=== PATIENT | female | born 1935 | race Caucasian/White ===

== ENCOUNTER → 2016-08-09 | Outpatient (CLI) | payer BC ==
[~2016-08-09] MED LIST: ACET1TAB84 PO; ALEN70TA3 PO; AMLO-110 PO; ASCA500 PO; ASPI81TA28 PO; CHOL400T PO; IRBE1TAB50 PO; PRED10TA PO; ULT50X PO
[2016-08-09 12:22] LABS: BASO % 0.4 %; BASO ABS # 0.03 K/uL (0-0.2); COMPLETE YES; EOS % 1.3 %; HEMATOCRIT 39.1 % (37-47); IG% 0.1 %; LYMPH % 28.4 %; LYMPH ABS # 1.92 K/uL (1.2-3.4); MEAN CELL VOLUME 90.9 fL (80-100); MEAN CORPUSCULAR HEMOGLOBIN 30.7 pg (25-34); MEAN CORPUSCULAR HGB CONC 33.8 g/dl (32-36); MEAN PLATELET VOLUME 10.9 fL (7.4-10.4); MONO % 8.9 %; NEUT % 60.9 %; PLATELET COUNT 239 K/uL (130-400); WHITE BLOOD COUNT 6.77 K/uL (4.8-10.8)
[2016-08-09 12:48] LABS: BLOOD UREA NITROGEN 18 mg/dl (7-18); BUN/CREATININE RATIO 16.2 (10-20); CARBON DIOXIDE 26 mmol/L (21-32); CHLORIDE 106 mmol/L (98-107); GLUCOSE 107 mg/dl (70-99); POTASSIUM 4.1 mmol/L (3.5-5.1); SODIUM 140 mmol/L (136-145)
[2016-08-09 13:24] LABS: ESTIMATED AVERAGE GLUCOSE 114 mg/dl; HA1C FLAG Normal (Normal)
== END | disposition home or self-care (01) ==
LOC: C.LABBFT 09:08
PROVIDERS: ATTEND Internal Medicine
DX: R73.01 Impaired fasting glucose (principal); E55.9 Vitamin D deficiency, unspecified; K62.5 Hemorrhage of anus and rectum; M35.3 Polymyalgia rheumatica

== ENCOUNTER → 2016-09-24 | Day surgery (SDC) | payer BC ==
[2016-09-18 10:04] VITALS: Ht 157.5 cm; Wt 50.0 kg
[~2016-09-24] VITALS: Ht 157.5 cm; Wt 50.0 kg
[~2016-09-24] MED LIST changes: +LIDOCAINE HCL 2% 2 ML VIAL (20MG/ML) ONE; -PRED10TA PO; +PROPOFOL IV EMULSION 10 MG/ML 20 ML VIAL IV ONE; -ULT50X PO
--- NOTE | 2016-09-24 13:20 | Endo History and Physical ---
History & Physical Date of Service: Sep 24, 2016. Chief Complaint: RECTAL BLEEDING Referring Physician: DR. PARK History of Present Illness 81 yo CF who presents for colonoscopy secondary to rectal bleeding. Past Surgical History Hx Cardiac Surgery: No Hx Internal Defibrillator: No Hx Pacemaker: No Hx Abdominal Surgery: Yes (BANDAR BSO) Hx of Implantable Prosthesis: No Hx Post-Op Nausea and Vomiting: No Hx Cancer Surgery: No Hx Thoracic Surgery: No Hx Orthopedic: Yes (RT CTR) Hx Urinary Tract Surgery: No Family History Colon CA Social History Smoking Status: Never Smoker Hx Substance Use: No Hx Alcohol Use: No Allergies Coded Allergies: No Known Allergies (Verified , 09/24/16) Current Medications Reported Home Medications Medications Dose Route/Sig Max Daily Dose Days Date Category Dose Instructions Vitamin D (Cholecalciferol) 400 Unit Tab 1 Tab PO QAM 09/18/16 Reported Vitamin C (Ascorbic Acid) 500 Mg Tab 1 Tab PO QAM 09/18/16 Reported Norvasc (Amlodipine Besylate) 5 Mg Tab 5 Mg PO QAM 09/18/16 Reported Irbesartan 300 Mg Tab 1 Tab PO QAM 09/18/16 Reported Fosamax+D 70MG/5600 Iu (Alendronate Sodium/Vitamin D3) 70 Mg Tab 1 Tablet PO WK 09/18/16 Reported SATURDAY Tylenol Arthritis Ext Rel (Acetaminophen) 650 Mg Cplt 650 Mg PO BID 09/28/15 Reported Aspirin Ec (Aspirin) 81 Mg Tab 81 Mg PO QAM 09/28/15 Reported Vital Signs Weight (Kilograms): 50 Height (Feet): 5 Height (Inches): 2 Date Time Temp Pulse Resp B/P (MAP) Pulse Ox O2 Delivery O2 Flow Rate FiO2 09/24/16 12:48 36.9 79 18 152/72 (98) 96 Room Air Physical Exam General Appearance: WD/WN, no apparent distress Respiratory/Chest: Auscultation: breath sounds normal Cardiovascular: Heart Auscultation: RRR Abdomen: Bowel Sounds: normal Inspection & Palpation: soft, non-distended, no tenderness, guarding & rebound Assessment and Plan Assessment: 81 yo CF who presents for colonoscopy secondary to rectal bleeding. Plan: Proceed with colonoscopy.
--- NOTE | 2016-09-24 13:44 | GI REPORT ---
Procedure Date: 09/24/2016 1:09 PM Procedure: Colonoscopy Indications: Rectal bleeding Medicines: Sedation Required Anesthesia Staff Assistance, Monitored Anesthesia Care Complications: No immediate complications. Estimated Blood Loss: Estimated blood loss: none. Procedure: Pre-Anesthesia Assessment: - Prior to the procedure, a History and Physical was performed, and patient medications and allergies were reviewed. The patient's tolerance of previous anesthesia was also reviewed. The risks and benefits of the procedure and the sedation options and risks were discussed with the patient. All questions were answered, and informed consent was obtained. Prior Anticoagulants: The patient has taken aspirin, last dose was 1 day prior to procedure. ASA Grade Assessment: III - A patient with severe systemic disease. After reviewing the risks and benefits, the patient was deemed in satisfactory condition to undergo the procedure. After I obtained informed consent, the scope was passed under direct vision. Throughout the procedure, the patient's blood pressure, pulse, and oxygen saturations were monitored continuously. The scope was introduced through the anus and advanced to the terminal ileum. The colonoscopy was performed without difficulty. The patient tolerated the procedure well. The quality of the bowel preparation was good. The terminal ileum, ileocecal valve, appendiceal orifice, and rectum were photographed. Findings: Multiple small-mouthed diverticula were found in the sigmoid colon. Non-bleeding internal hemorrhoids were found during retroflexion. The hemorrhoids were small. Impression: - Diverticulosis in the sigmoid colon. - Non-bleeding internal hemorrhoids. - No specimens collected. Recommendation: - Resume previous diet. - Continue present medications. - No repeat colonoscopy due to age and the absence of advanced adenomas. - Return to primary care physician as previously scheduled. Nico Lopez, 09/24/2016 1:43:46 PM This report has been signed electronically. Note Initiated On: 09/24/2016 1:09 PM I attest to the content of the Intraoperative Record and orders documented therein, exceptions below
--- NOTE | 2016-09-24 13:44 | Discharge Instructions ---
Endoscopy Patient Instructions Date / Procedure(s) Performed Sep 24, 2016. Colonoscopy Allergy Information Coded Allergies: No Known Allergies (Verified , 09/24/16) Discharge Date / Findings Sep 24, 2016. Diverticulosis Internal hemorrhoids Medication Instructions Stopped Medication(s): ASPIRIN LAST DOSE 09/23/16 OK to resume all medications today as prescribed Reported Home Medications Medications Dose Route/Sig Max Daily Dose Days Date Category Dose Instructions Vitamin D (Cholecalciferol) 400 Unit Tab 1 Tab PO QAM 09/18/16 Reported Vitamin C (Ascorbic Acid) 500 Mg Tab 1 Tab PO QAM 09/18/16 Reported Norvasc (Amlodipine Besylate) 5 Mg Tab 5 Mg PO QAM 09/18/16 Reported Irbesartan 300 Mg Tab 1 Tab PO QAM 09/18/16 Reported Fosamax+D 70MG/5600 Iu (Alendronate Sodium/Vitamin D3) 70 Mg Tab 1 Tablet PO WK 09/18/16 Reported SATURDAY Tylenol Arthritis Ext Rel (Acetaminophen) 650 Mg Cplt 650 Mg PO BID 09/28/15 Reported Aspirin Ec (Aspirin) 81 Mg Tab 81 Mg PO QAM 09/28/15 Reported Provider Instructions Activity Restrictions - No exercising or heavy lifting for 24 hours. - Do not drink alcohol the day of the procedure. - Do not drive a car or operate machinery until the day after the procedure. - Do not make any important decisions or sign important papers in 24 hours after the procedure. Following Day: - Return to full activity which may include returning to work/school. Diet Start your diet with liquids and light foods (jello, soup, juice, toast). Then eat your usual diet if not nauseated. Treatment For Common After Affects For mild abdominal pain, bloating, or excessive gas: - Rest - Eat lightly - Lie on right side Follow-Up Information Follow-up with DR. PARK as scheduled Anesthesia Information What You Should Know You have had a procedure that required some medicine to reduce anxiety and discomfort. This treatment is called moderate sedation. After receiving the treatment, you may be sleepy, but you will be able to breathe on your own. The effects of the treatment may last for several hours. Follow these instructions along with Activity/Diet recommendations noted above: * Do NOT do anything where dizziness or clumsiness would be dangerous. * Rest quietly at home today, then you can be up and about tomorrow. * Have a responsible person stay with you the rest of today. * You may have had an I.V. today. If so, you may take the dressing off later today. Recommendations Call your doctor if: * Trouble breathing * Continuous vomiting for more than 24 hours * Temperature above 101 degrees * Severe abdominal pain or bloating * Pain not relieved by pain medicine ordered * There is increased drainage or redness from any incision * A large amount of rectal bleeding greater than 2-3 tablespoons. (If you had a polyp/s removed or have hemorrhoids, a small amount of blood - from the rectum is to be expected.) * You have any unanswered questions or concerns. IN THE EVENT OF A SERIOUS EMERGENCY, GO TO THE NEAREST EMERGENCY ROOM Your discharge instructions were prepared by provider Nico Lopez. Patient Instructions Signature Page Mitzi Elmore Patient (or Guardian) Signature/Date: I have read and understand the instructions given to me by my caregivers. Caregiver/RN/Doctor Signature/Date: The above-named patient and/or guardian has received patient instructions on this date. + Original Patient Signature Page (only) stays with chart. Please make copy for patient.
--- NOTE | 2016-09-24 14:00 | Anesthesiology Progress Note ---
Anesthesia Post Op Note Date & Time Sep 24, 2016 at 14:00 Vital Signs Pain Intensity: 0 Vital Signs Past 12 Hours Date Time Temp Pulse Resp B/P (MAP) Pulse Ox O2 Delivery O2 Flow Rate FiO2 09/24/16 13:58 73 20 134/89 (104) 99 Room Air 09/24/16 13:46 78 20 118/53 (74) 98 Room Air 09/24/16 12:48 36.9 79 18 152/72 (98) 96 Room Air Notes Mental Status: alert / awake / arousable, participated in evaluation Pt Amnestic to Procedure: Yes Nausea / Vomiting: adequately controlled Pain: adequately controlled Airway Patency, RR, SpO2: stable & adequate BP & HR: stable & adequate Hydration State: stable & adequate Anesthetic Complications: no major complications apparent
[2016-09-24 14:08] VITALS: BP 133/84; PULSE 69; O2SAT 99
== END | disposition home or self-care (01) ==
LOC: C.GI 12:24
PROVIDERS: ATTEND Internal Medicine
DX: K62.5 Hemorrhage of anus and rectum (principal); K57.30 Diverticulosis of large intestine without perforation or abscess without bleeding; K64.8 Other hemorrhoids; Z90.710 Acquired absence of both cervix and uterus; Z79.82 Long term (current) use of aspirin; Z98.41 Cataract extraction status, right eye; Z98.42 Cataract extraction status, left eye; I10 Essential (primary) hypertension; E78.5 Hyperlipidemia, unspecified; M19.90 Unspecified osteoarthritis, unspecified site; M35.3 Polymyalgia rheumatica; M81.0 Age-related osteoporosis without current pathological fracture; Z92.241 Personal history of systemic steroid therapy

== ENCOUNTER → 2016-12-18 | Outpatient (CLI) | payer BC ==
[~2016-12-18] MED LIST changes: -LIDOCAINE HCL 2% 2 ML VIAL (20MG/ML) ONE; -PROPOFOL IV EMULSION 10 MG/ML 20 ML VIAL IV ONE
== END | disposition home or self-care (01) ==
LOC: C.PAPS 10:10
PROVIDERS: ATTEND Nurse Practitioner
DX: N89.8 Other specified noninflammatory disorders of vagina (principal)

== ENCOUNTER → 2016-12-18 | Outpatient (CLI) | payer BC ==
[2016-12-18 17:50] LABS: BASO % 0.5 %; BASO ABS # 0.04 K/uL (0-0.2); COMPLETE YES; EOS % 0.8 %; HEMATOCRIT 39.4 % (37-47); LYMPH % 25.8 %; MEAN CORPUSCULAR HEMOGLOBIN 30.5 pg (25-34); MEAN CORPUSCULAR HGB CONC 33.5 g/dl (32-36); MEAN PLATELET VOLUME 10.6 fL (7.4-10.4); MONO % 8.5 %; NEUT % 64.4 %; PLATELET COUNT 247 K/uL (130-400); RED BLOOD COUNT 4.33 M/uL (4.2-5.4); WHITE BLOOD COUNT 7.75 K/uL (4.8-10.8)
[2016-12-18 18:13] LABS: ALT/SGPT 18 U/L (12-78); AST/SGOT 13 U/L (15-37); BLOOD UREA NITROGEN 19 mg/dl (7-18); BUN/CREATININE RATIO 18.1 (10-20); CALCIUM 9.3 mg/dl (8.5-10.1); CARBON DIOXIDE 27 mmol/L (21-32); CHLORIDE 106 mmol/L (98-107); CREATININE 1.03 mg/dl (0.60-1.20); GLUCOSE 100 mg/dl (70-99); POTASSIUM 4.6 mmol/L (3.5-5.1); SODIUM 140 mmol/L (136-145)
[2016-12-18 18:16] LABS: ALB/GLOB RATIO 1.2 (0.9-2); ALKALINE PHOSPHATASE 54 U/L (45-117)
== END | disposition home or self-care (01) ==
LOC: C.LABBFT 11:16
PROVIDERS: ATTEND Nurse Practitioner
DX: N89.8 Other specified noninflammatory disorders of vagina (principal); R10.84 Generalized abdominal pain

== ENCOUNTER → 2016-12-24 | Outpatient (CLI) | payer BC ==
[~2016-12-24] MED LIST changes: +OPTIRAY 320 IV PRN
--- NOTE | 2016-12-24 13:22 | DIAGNOSTIC IMAGING REPORT ---
CT SCAN OF THE ABDOMEN AND PELVIS WITH IV CONTRAST CLINICAL HISTORY: Generalized abdominal pain. COMPARISON STUDY: Abdominal CT dated 12/08/2010. TECHNIQUE: Following the IV administration of 93 cc of Optiray 320, CT scan of the abdomen and pelvis is performed from the lung bases to the proximal femora. Images are reviewed in the axial, sagittal, and coronal planes. IV contrast was administered without complication. A dose lowering technique was utilized adhering to the principles of ALARA. CT DOSE: 376.16 mGycm FINDINGS: Lung bases: The heart is normal in size and without pericardial effusion. There are bilateral fat-containing Bochdalek hernias. The lung bases are otherwise clear. Liver: The contrast-enhanced liver is normal in size, contour, and attenuation. There is no intrahepatic biliary ductal dilatation. The hepatic veins and portal veins are patent. Calcific granulomas are noted in the left hepatic lobe. 8 mm cyst is seen in the left lobe. Gallbladder: Unremarkable. Spleen: Normal in size and attenuation. Pancreas: Unremarkable. Adrenal glands: Unremarkable. Kidneys: The contrast enhanced kidneys images are cortical atrophy. There is no hydronephrosis. The kidneys enhance symmetrically. 5.6 cm cyst is again noted on the right. Additional subcentimeter cortical hypodensities also likely represent cysts but are too small for definitive characterization. 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 Abdominal vasculature: The abdominal aorta is normal in course and caliber moderate lumbosacral spondylosis is observed. Noting advanced atherosclerotic calcification. Bowel: There are severe constipation. No bowel obstruction is seen. The appendix is not identified. Peritoneum: There is no intraperitoneal free air or abdominal ascites. Lymphadenopathy: None. Pelvic viscera: The bladder is normal as visualized. The uterus is surgically absent. No adnexal lesion is seen. A 7 mm enhancing nodule is seen within the right gluteal musculature on image #302. This was likely present in 2010 and is of low suspicion. Skeletal structures: The skeletal structures are heterogeneously osteopenic. No lytic or blastic lesions are seen. Advanced arthritic changes present in the hips, right greater than left. Bursal fluid is present around the right hip. IMPRESSION: 1. There are no acute infectious or inflammatory findings in the abdomen or pelvis. 2. Severe constipation. No bowel obstruction is seen. 3. There is a 7 mm nodule focus of enhancement within the right gluteal musculature is of indeterminant etiology, possible representing a small nerve sheath tumor or intramuscular hemangioma. This has likely been present dating back to 2010 and is of doubtful significance. If further assessment is desired ultrasound could be considered. 4. Additional findings as above. Electronically signed by: Jose Ramon Baer M.D. 12/24/2016 1:20 PM Dictated Date/Time: 12/24/2016 1:11 PM
== END | disposition home or self-care (01) ==
LOC: C.CTS 10:51
PROVIDERS: ATTEND Nurse Practitioner
DX: R10.84 Generalized abdominal pain (principal); K59.00 Constipation, unspecified; R93.5 Abnormal findings on diagnostic imaging of other abdominal regions, including retroperitoneum

== ENCOUNTER → 2017-04-24 | Outpatient (CLI) | payer BC ==
[~2017-04-24] MED LIST changes: -OPTIRAY 320 IV PRN
[2017-04-25 06:59] LABS: HEMOGLOBIN A1C 5.5 % (4.5-5.6)
== END | disposition home or self-care (01) ==
LOC: C.LABBFT 13:26
PROVIDERS: ATTEND Internal Medicine
DX: R73.01 Impaired fasting glucose (principal); E55.9 Vitamin D deficiency, unspecified

== ENCOUNTER → 2017-09-18 | Outpatient (CLI) | payer BC, OTHER ==
[~2017-09-18] MED LIST changes: -AMLO-110 PO; +AMLO5TAB3 PO
[2017-09-18 17:38] LABS: BASO % 0.3 %; BASO ABS # 0.03 K/uL (0-0.2); EOS % 0.5 %; EOS ABS # 0.05 K/uL (0-0.5); HEMATOCRIT 37.4 % (37-47); HEMOGLOBIN 12.4 g/dL (12.0-16.0); IG# 0.04 K/uL (0.00-0.02); LYMPH ABS # 1.76 K/uL (1.2-3.4); MEAN CELL VOLUME 91.4 fL (80-100); MEAN CORPUSCULAR HEMOGLOBIN 30.3 pg (25-34); MEAN CORPUSCULAR HGB CONC 33.2 g/dl (32-36); MEAN PLATELET VOLUME 11.5 fL (7.4-10.4); MONO % 5.1 %; MONO ABS # 0.56 K/uL (0.11-0.59); NEUT % 77.7 %; NEUT ABS # 8.58 K/uL (1.4-6.5); PLATELET COUNT 253 K/uL (130-400); RED CELL DISTRIBUTION WIDTH CV 13.8 % (11.5-14.5); RED CELL DISTRIBUTION WIDTH SD 45.6 fL (36.4-46.3); WHITE BLOOD COUNT 11.02 K/uL (4.8-10.8)
[2017-09-18 18:15] LABS: ALBUMIN 3.2 gm/dl (3.4-5.0); ALKALINE PHOSPHATASE 205 U/L (45-117); ALT/SGPT 220 U/L (12-78); AST/SGOT 46 U/L (15-37); BLOOD UREA NITROGEN 15 mg/dl (7-18); CALCIUM 8.7 mg/dl (8.5-10.1); CARBON DIOXIDE 25 mmol/L (21-32); CREATININE 1.18 mg/dl (0.60-1.20); GLUCOSE 113 mg/dl (70-99); POTASSIUM 4.1 mmol/L (3.5-5.1); SODIUM 135 mmol/L (136-145); TOTAL PROTEIN 6.9 gm/dl (6.4-8.2)
== END | disposition home or self-care (01) ==
LOC: C.LABBFT 08:16
PROVIDERS: ATTEND Nurse Practitioner Adult Health
DX: R21 Rash and other nonspecific skin eruption (principal)

== ENCOUNTER → 2017-10-15 | Outpatient (CLI) | payer BC ==
[2017-10-15 12:41] LABS: BASO % 0.7 %; BASO ABS # 0.04 K/uL (0-0.2); EOS % 3.2 %; EOS ABS # 0.18 K/uL (0-0.5); HEMATOCRIT 38.4 % (37-47); HEMOGLOBIN 12.8 g/dL (12.0-16.0); IG# 0.01 K/uL (0.00-0.02); LYMPH % 35.7 %; LYMPH ABS # 1.99 K/uL (1.2-3.4); MEAN CELL VOLUME 90.6 fL (80-100); MEAN CORPUSCULAR HEMOGLOBIN 30.2 pg (25-34); MEAN CORPUSCULAR HGB CONC 33.3 g/dl (32-36); MEAN PLATELET VOLUME 11.5 fL (7.4-10.4); MONO % 10.6 %; MONO ABS # 0.59 K/uL (0.11-0.59); NEUT % 49.6 %; NEUT ABS # 2.77 K/uL (1.4-6.5); PLATELET COUNT 182 K/uL (130-400); RED CELL DISTRIBUTION WIDTH CV 13.7 % (11.5-14.5); RED CELL DISTRIBUTION WIDTH SD 44.9 fL (36.4-46.3); WHITE BLOOD COUNT 5.58 K/uL (4.8-10.8)
[2017-10-15 14:09] LABS: ALBUMIN 3.3 gm/dl (3.4-5.0); ALKALINE PHOSPHATASE 69 U/L (45-117); ALT/SGPT 26 U/L (12-78); AST/SGOT 20 U/L (15-37); BLOOD UREA NITROGEN 15 mg/dl (7-18); CALCIUM 8.7 mg/dl (8.5-10.1); CARBON DIOXIDE 25 mmol/L (21-32); GLUCOSE 83 mg/dl (70-99); POTASSIUM 4.2 mmol/L (3.5-5.1); SODIUM 138 mmol/L (136-145); TOTAL PROTEIN 6.7 gm/dl (6.4-8.2)
== END | disposition home or self-care (01) ==
LOC: C.LABBFT 08:21
PROVIDERS: ATTEND Nurse Practitioner Adult Health
DX: A69.20 Lyme disease, unspecified (principal)

== ENCOUNTER 2020-07-05 07:24 | Observation (INO) ==
--- NOTE | 2020-05-26 15:14 | PAT Medication Instructions ---
Medication Instructions Date of Service May 26, 2020 Home Medications Medication Instructions Recorded amlodipine 2.5 mg tablet 5 mg PO DAILY #90 tab 03/03/20 irbesartan 300 mg tablet 300 mg PO QAM #90 tab 03/03/20 simvastatin 20 mg tablet 20 mg PO QPM #90 tab 03/03/20 hydrocodone 5 mg-acetaminophen 325 See Rx Instructions PO Q8H PRN #30 05/19/20 mg tablet tab alendronate 70 mg PO WK aspirin [Aspirin Low Dose] 81 mg PO QAM amlodipine 2.5 mg tablet 5 mg PO DAILY irbesartan 300 mg tablet 300 mg PO QAM simvastatin 20 mg tablet 20 mg PO QPM hydrocodone 5 mg-acetaminophen 325 mg tablet See Rx Instructions PO Q8H PRN DO NOT take the morning of surgery alendronate 70 mg PO WK irbesartan 300 mg tablet 300 mg PO QAM Take morning of surgery With a small sip of water, OTHERWISE NOTHING TO EAT OR DRINK AFTER MIDNIGHT: aspirin [Aspirin Low Dose] 81 mg PO QAM amlodipine 2.5 mg tablet 5 mg PO DAILY hydrocodone 5 mg-acetaminophen 325 mg tablet PO Q8H PRN (if needed, may be taken up to four hours before surgery) Take evening before surgery simvastatin 20 mg tablet 20 mg PO QPM hydrocodone 5 mg-acetaminophen 325 mg tablet PO Q8H PRN (if needed) Other Notes If you have any questions please call us at [phone] or [phone] or [phone] or [phone]
--- NOTE | 2020-05-30 14:56 | Anesthesiology Consultation ---
Date of Service May 30, 2020 Assessment & Plan (1) Encounter for pre-operative examination: COVID Status: As of 05/30 assessment, patient denies travel to endemic area, known exposure/sick contacts, or symptoms of COVID19. Patient instructed that they and their household members must follow strict social distancing guidelines, wear a mask in public and avoid travel/events/gatherings for 14 days prior to surgery. Preoperative COVID19 testing to be completed prior to surgery per surgeon's arrangements (06/02). Patient made aware to self-isolate as much as possible between COVID testing and surgery. Chart Review Chart Review: Acceptable Risk for Surgery and Patient seen in Pre Admission Testing Teaching & Discussion Instructed NPO after midnight before surgery, except medications with 15 cc of water. Medication instructions provided according to the PAT guidelines. History Surgery Operation Date: 06/08/20 10:55 Proposed Procedures p Right Total Hip Replacement - Eamon Helm MD Height/Weight Height: 5 ft 2 in Weight: 49 kg Allergies Allergy/AdvReac Type Severity Reaction Status Date / Time No Known Allergies Allergy Verified 05/26/20 10:58 Medications Home Medications Medication Instructions Recorded Confirmed Last Taken alendronate 70 mg PO WK 07/24/18 05/30/20 05/16/20 aspirin [Aspirin Low Dose] 81 mg PO QAM 07/24/18 05/30/20 05/17/20 amlodipine 2.5 mg tablet 5 mg PO DAILY #90 tab 03/03/20 05/30/20 05/17/20 irbesartan 300 mg tablet 300 mg PO QAM #90 tab 03/03/20 05/30/20 05/17/20 simvastatin 20 mg tablet 20 mg PO QPM #90 tab 03/03/20 05/30/20 05/17/20 hydrocodone 5 mg-acetaminophen 325 See Rx Instructions PO Q8H PRN #30 05/30/20 Unknown mg tablet tab Past Medical History Medical History (Updated 05/30/20 @ 15:21 by Pablo Kaur) Aortic insufficiency Mild on 2019 stress echo Borderline diabetes Hyperlipidemia Hypertension Jaw clicking ON LEFT SIDE/NO LOCKING Myocardial Infarction Noted on an EKG in the , no cath done. Osteoarthritis Polymyalgia rheumatica Tricuspid regurgitation Mild-moderate on 2019 stress echo Exercise / Class Metabolic Activity II 4-5 Yardwork/Stairs/Walk up hill (Denies CP or limiting STYLES with 1 FOS, uses cane for ambulation) Past Family History Family History Father Colorectal cancer Uncle Colorectal cancer Brother Myocardial infarction Sister Myocardial infarction Mother Family history of diabetes mellitus Grandmother (Maternal) Family history of diabetes mellitus Other Family history non-contributory No family history of adverse response to anesthesia Denies family history of Ovarian cancer Prostate cancer Breast cancer Past Surgical History Surgical History (Updated 05/30/20 @ 15:12 by Pablo Kaur) History of anesthesia reaction SHAKING AFTER FIRST COLONOSCOPY/"COLD ALL OVER". NO ISSUES WITH SUBSEQUENT SURGERIES. History of appendectomy History of breast biopsy LEFT (BENIGN) History of carpal tunnel release RT History of cataract surgery RT/LEFT History of colonoscopy History of hysterectomy History of tooth extraction Past Anesthesia History No Hx of Anesthesia Complications (OTHER THAN EPISODE OF SHIVERING/SHAKING AFTER COLONOSCOPY) and No Family Hx of Anesthesia Complications History of PONV No Hx of PONV and No Hx of Motion Sickness Social History Smoking Status: Never smoker Do You Dip or Chew Tobacco: No Smoking End Date: SMOKED VERY LITTLE FOR 2 YEARS IN "MY LATE 30'S" Hx Alcohol Use: No Hx Substance Use: No Review of Systems Pt denies any recent chest pain, shortness of breath, palpitations, cough, fever, URI, or uncontrolled acid reflux. Physical Exam Vital Signs BP: 130/66 P: 69bpm SPO2: 98% RA T: 98.4 F R: 16 ENMT Mouth: + dentures (partial, does not wear currently); no chipped teeth and no loose teeth Thyromental Distance: > or= 3.5 Finger Breadths Mallampati Class: III Neck normal visual inspection; neck extension not limited Respiratory normal respiratory effort, lungs clear to auscultation Cardiovascular RRR, no murmur, no edema Vessels: no carotid bruit Testing Laboratory Results 05/30/20 15:34 PT 9.9 Seconds (9.0-12.0) 05/30/20 15:34 INR 1.0 (0.9-1.1) 05/30/20 15:34 APTT 22.3 Seconds (21.0-31.0) 05/30/20 15:34 Blood Type AB Positive 05/30/20 15:34 Antibody Screen NEGATIVE 05/30/20 15:34 BMP 05/27/20 SODIUM: 139 POTASSIUM: 3.8 CHLORIDE: 108 CO2: 27 BUN: 22 CREATININE: 1.14 GLUCOSE: 103 Electrocardiogram Date: 05/30/20 Sinus rhythm with premature atrial complexes at 66 bpm. Minimal voltage criteria for LVH, may be normal variant. Septal infarct (cited on or before 05/30/2020). Compared with EKG of 10/01/2018 PACs are now present and questionable change in QRS axis. Chest X-Ray Date: 05/30/20 FINDINGS: PA and lateral chest radiographs are compared to study dated 10/01/2018. The heart is enlarged noting atherosclerotic calcification of the thoracic aorta. The pulmonary vasculature is noncongested. Emphysematous change is bob spected. Chronic interstitial thickening is similar to previous. No airspace consolidation or large pleural effusion is identified. There is no pneumothorax. The skeletal structures are osteopenic. The bony thorax appears intact. Degenerative change is noted in the right shoulder and thoracic spine. IMPRESSION: Cardiomegaly and suspect emphysema. No acute cardiopulmonary abnormality is identified. Echocardiogram Date: 06/05/19 EF: 65-70% The LV is normal in size. Mild concentric LVH. Systolic function is normal. Grade 1 diastolic dysfunction. No regional wall motion abnormalities noted. Mi ld aortic regurgitation. Mild mitral regurgitation. Moderate tricuspid regurgitation. Normal pulmonary pressure. Stress Test Date: 04/23/19 Resting EF: >70% Negative dobutamine stress echo for ischemia at 91% MPHR. Appropriate blood pressure response. No arrhythmia. No chest pain reported. Baseline echocardiogram shows normal LV size with hyperdynamic systolic function. No regional wall motion abnormalities. Mild concentric LVH. Mild AR. Mild to moderate TR. Normal estimated RVSP.
[2020-05-30 15:57] LABS: Basophils # (auto) 0.02 K/uL (0-0.2); Basophils % (auto) 0.4 %; Eosinophils # (auto) 0.07 K/uL (0-0.5); Eosinophils % (auto) 1.3 %; Hematocrit (blood only) 34.6 % (37-47); Hemoglobin 11.9 g/dL (12.0-16.0); Lymphocytes % (auto) 30.1 %; Mean Corpuscular Hemoglobin 31.2 pg (25-34); Mean Corpuscular Hgb Conc 34.4 g/dL (32-36); Mean Corpuscular Volume 90.8 fL (80-100); Mean Platelet Volume 10.5 fL (7.4-10.4); Monocytes # (auto) 0.45 K/uL (0.11-0.59); Monocytes % (auto) 8.5 %; Neutrophils # (auto) 3.18 K/uL (1.4-6.5); Neutrophils % (auto) 59.7 %; Platelet Count 244 K/uL (130-400); RDW Coefficient of Variation 13.5 % (11.5-14.5); RDW Standard Deviation 44.2 fL (36.4-46.3); Red Blood Count 3.81 M/uL (4.2-5.4); White Blood Count 5.32 K/uL (4.8-10.8)
[2020-05-30 16:08] LABS: Partial Thromboplastin Ratio 0.8; Partial Thromboplastin Time 22.3 Seconds (21.0-31.0); Prothrombin Time 9.9 Seconds (9.0-12.0)
--- NOTE | 2020-05-30 16:34 | XRay Report ---
TWO VIEW CHEST CLINICAL HISTORY: Cardiomegaly. Preoperative examination. FINDINGS: PA and lateral chest radiographs are compared to study dated 10/01/2018. The heart is enlarge d noting atherosclerotic calcification of the thoracic aorta. The pulmonary vasculature is noncongest ed. Emphysematous change is suspected. Chronic interstitial thickening is similar to previous. No air space consolidation or large pleural effusion is identified. There is no pneumothorax. The skeletal s tructures are osteopenic. The bony thorax appears intact. Degenerative change is noted in the right s houlder and thoracic spine. IMPRESSION: Cardiomegaly and suspect emphysema. No acute cardiopulmonary abnormality is identified. ACT 112: Negative or not required by law. Electronically signed by: Jose Ramon Baer M.D. 05/30/2020 4:33 PM
--- NOTE | 2020-05-31 12:28 | Electrocardiogram Report ---
Test Reason : Blood Pressure : / mmHG Vent. Rate : 066 BPM Atrial Rate : 066 BPM P-R Int : 202 ms QRS Dur : 082 ms QT Int : 412 ms P-R-T Axes : 084 071 070 degrees QTc Int : 431 ms Sinus rhythm with Premature atrial complexes Minimal voltage criteria for LVH, may be normal variant Septal infarct (cited on or before 30-MAY-2020) Abnormal ECG When compared with ECG of 01-OCT-2018 19:41, Premature atrial complexes are now Present Questionable change in QRS axis Confirmed by Dm Simpson ([id number]) on 05/31/2020 12:27:40 PM Referred By: Eamon Helm Confirmed By:Dm Simpson
--- NOTE | 2020-06-30 17:56 | History and Physical Report ---
DATE OF ADMISSION: 07/05/2020 CHIEF COMPLAINT: Right hip/groin/thigh pain. HISTORY OF PRESENT ILLNESS: The patient is an 84-year-old female who presents for surgical treatment of her right hip. She has about a year and a half to 2-year history of a right hip, thigh and groin pain that has gotten significantly worse over the past couple of months. No particular injury. She was in the ER, had x-rays done and put on some narcotics which really did not help with the pain control. She comes now specifically for surgical treatment of her right hip. She has had to resort to using a cane now over the past 2 months. She has trouble living by herself. She would like to get her hip fixed. Of note, the patient was previously scheduled for hip replacement surgery about a month ago, but canceled due to the COVID issues. She now would like to proceed with hip replacement surgery. PAST MEDICAL HISTORY: 1. Question of an DE in 1995. 2. Arthritis. 3. Elevated cholesterol. 4. Hypertension. PAST SURGICAL HISTORY: Includes hysterectomy. ALLERGIES: None. CURRENT MEDICATIONS: Include, 1. Fosamax. 2. Amlodipine. 3. Aspirin. 4. Hydrocodone. 5. Irbesartan. 6. Simvastatin. SOCIAL HISTORY: An 84-year-old female. Lives by herself and is . Her son lives a couple doors down. Does not smoke. No alcohol intake. FAMILY HISTORY: Noncontributory. REVIEW OF SYSTEMS: Negative for diabetes, neurologic problem, vascular problems or bleeding disorders. No chest pain or shortness of breath. No history of DVT or PE. She does have this questionable heart history in 1995. PHYSICAL EXAMINATION: GENERAL: Shows a pleasant elderly female. Looks to be in pretty good health. HEENT: Benign. NECK: Supple, no lymphadenopathy. LUNGS: Clear to auscultation. HEART: Has a regular rate and rhythm. ABDOMEN: Soft, nontender, nondistended. EXTREMITIES: Grossly neurovascularly intact except as follows: Examination of the right hip revealed patient ambulates with use of a cane. She clearly limps on this right side. She has trouble walking at all without the cane. She is about 0.5 cm short on the right compared to the left. Very stiff hip with limited motion to neutral at best. She has got any pain with any type of hip motion. X-RAYS: X-rays of the right hip were reviewed and showed advanced right hip DJD. She has got cystic changes in the femoral head and acetabulum. She has complete loss of the joint space with flattening of the femoral head. ASSESSMENT: An 84-year-old female with advanced right hip degenerative joint disease. It is really affecting her quality of life and ability to maintain an independent and active lifestyle. She has failed conservative measures. She was scheduled for hip replacement surgery in the past but canceled due to the COVID epidemic and would now like to proceed. PLAN: We are going to proceed with a right total hip replacement. The risks and benefits of this procedure were explained to the patient including but not limited to DVT, PE, , infection, neurological injury, vascular injury, bleeding problem, pain, limited range of motion, stiffness, failure to relieve her symptoms, incomplete relief of symptoms, need for further surgery in the future, fracture, leg length inequality, nerve palsy, dislocation, need for blood transfusion, etc. The patient understands and desires to proceed. Informed consent was obtained. We will do all we can to make her hip as stable as possible. We will have a cemented stem available if her bone quality is not good. She is hoping to be discharged to [facility] for a brief rehab stay.
[~2020-07-05 07:24] MED LIST changes: -ACET1TAB84 PO; +ACETAMINOPHEN 500 MG TAB PO SCH; -ALEN70TA3 PO; -AMLO5TAB3 PO; -ASCA500 PO; -ASPI81TA28 PO; -CHOL400T PO; +FAMOTIDINE 20 MG TAB PO SCH; +GABAPENTIN 300 MG CAP PO SCH; -IRBE1TAB50 PO; +LR 500ML BOLUS, THEN 15ML/HR IV SCH; +LR 60ML/HR IV SCH; +METOCLOPRAMIDE HCL 10 MG TABLET PO SCH; +TRANEXAMIC ACID 1,000 MG **IV Pre-op IV SCH; +ceFAZolin 2000MG 2,000 MG/15 ML SYR IV SCH
[2020-07-05] MEDS ORDERED: BUPIVACAINE 0.5 % 5 MG/1 ML PF 10ML VIAL ONE (07:45)
--- NOTE | 2020-07-05 08:26 | History & Physical Bridge Note ---
Date of Service July 05, 2020 History & Physical Bridge Note I have examined the patient, reviewed the History & Physical and in the interval since the performance of the History & Physical I have noted the following changes of clinical significance: no changes noted
[2020-07-05] MEDS ORDERED: ePHEDrine sulfate 50 MG/ML AMP IV PRN (09:40)
[2020-07-05] MEDS ORDERED: ONDANSETRON INJ 2 MG/ML 2 ML VIAL IV PRN (09:40)
[2020-07-05] MEDS ORDERED: ATROPINE SULFATE 0.1 MG/ML 10ML SYR IV PRN (09:40)
[2020-07-05] MEDS ORDERED: fentaNYL citrate 100 MCG/2 ML VIAL IV PRN (09:40)
[2020-07-05] MEDS ORDERED: HYDROmorphone INJ 2 MG/ML SYR/VIAL IV PRN (09:40)
[2020-07-05] MEDS ORDERED: MIDAZOLAM HCL 1 MG/ML 2ML VIAL ONE (09:49)
[2020-07-05] MEDS ORDERED: BUPIVACAINE/EPINEPHRINE 0.5% MPF 1:200,000 30 ML VIAL ONE (10:23)
[2020-07-05] MEDS ORDERED: PHENYLEPHRINE HCL 10 MG/ML VIAL ONE (11:52)
[2020-07-05] MEDS ORDERED: PROPOFOL IV EMULSION 10 MG/ML 20 ML VIAL IV ONE (11:52)
--- NOTE | 2020-07-05 12:40 | Operative Report ---
Post Operative Report Pre & Post Diagnosis Operation Date: 07/05/20 10:10 Pre-Op Diagnosis: Right Hip Advanced Degenerative Joint Disease Post-Op Diagnosis: Right Hip Advanced Degenerative Joint Disease I identified the patient and participated in the time-out.: Yes Procedure Operation Date: 07/05/20 10:10 Actual Procedures p Right Total Hip Arthroplasty (Uncemented) with Application of Stabilization Cables x2(Right) - Eamon Helm MD Surgeon Eamon Helm MD Maid Housekeeper DIMITRIOS Johnston Estimated Blood Loss 200 Findings Consistent with Post-Op Diagnosis Operative findings were advanced right hip DJD. She had extensive grade 4 [id number] disease of the femoral head and acetabulum. She had collapse of the femoral head. She had osteophytes around the acetabulum anteriorly inferiorly and some posteriorly. Her labrum was calcified. She had a moderate to large hip joint effusion and some moderate synovitis. Fluids 1000 cc Specimens Right femoral head sent for pathology. Drains None. Anesthesia Type Spinal MAC Complications Upon placing the permanent/final femoral implant there was a small crack in the calcar. We remove the implant and placed 2 Dall-Miles cables 1 above and 1 below the lesser trochanter to prevent any further expansion of this fracture and then reviewed place the implant. This should not affect her rehab or her postoperative course. Disposition Accompanied Patient To Recovery: Yes Disposition: Recovery Room Indications Patient 84-year-old very independent active female whose had a several year history of increasing right hip pain discomfort is gotten worse over the past year. She is resorted using a cane to get around. She has him difficulty living in independent lifestyle. X-ray showed advanced hip arthritis but she failed conservative measures and elected proceed with total hip arthroplasty. Description of Procedure Operative implants consisted of: 1. Biomet size 52 mm G7 acetabular shell. 2. 6.5 cancellous acetabular screws 135 mm length 120 mm length. 3. Hankamer hole ruby engineer. 4. Highly cross-linked polyethylene liner with a 52 mm outer diameter and a 36 mm inner diameter. 5. Bhumi Corail size 8/125 degree/short neck Corail femoral stem. 6. +1.5/36 mm ceramic articular ball. 7. 2.0 mm Dall-Miles cables x2. Patient was taken the operating room, identified, placed on the operating table supine position but all contractors were properly padded. IV antibiotics tried by anesthesia team. A spinal anesthetic and been implemented holding area. A Cain cath was placed in sterile fashion. The patient was then placed in the left lateral decubitus position. An axillary roll was placed. A Stulberg hip positioner was used for positioning. The right hip and leg were then prepped and draped in usual sterile fashion. A posterior lateral approach to the right hip was then performed to a curvilinear incision centered over the greater trochanter. Sharp dissection got through subcutaneous this down to the IT band gluteal fascia the IT band gluteal fascia incised longitudinally in line with skin incision. The underlying greater bursa was excised. The piriformis and external rotators were tagged and taken off the posterior aspect of the hip joint capsule. Great care was taken throughout the procedure protect the sciatic nerve at all times. Posterior capsulotomy was then performed leaving a large flap for later repair. Hip was internally rotated and dislocated. Femoral neck osteotomy cut was made with Final Cut 5 mm above the lesser trochanter. We initially made the cut about 10 mm above and then did recut it later to shorten her leg slightly due to leg length issues and tightness. The femur was retracted anteriorly. Centered on the acetabulum. The acetabular labrum was excised. Pulmonary fat was" excised. Sequential reaming the acetabular was then performed beginning with size 43 and progressing up to 51. I did reamed some with a 52 reamer and a 52 mm Biomet G7 acetabular shell was then placed in about 40 degrees lateral opening and 20 degrees of anteversion. It was fixed with two 6.5 cancellous acetabular screws. Some anterior and posterior osteophytes were removed. A trial liner was placed. At tention drawn the femur. The proximal femur was entered with a cookie-cutter followed by canal finder. I then broached begin the size 8 and progressed to a 9. We got good fit. I trialed this and with a standard stem but was just too tight. We used the short next stem and this more appropriately recreated soft tissue tension. However it still seemed a bit tight in extension. Therefore I removed the stem and I cut the neck about 5 mm shorter. I reimplanted the 8 stem and I could not quite get this down so we elected to stay with the 8 stem. We did trial hip and the hip was fully stable full extension and external rotation flexion to 9 degrees internal rotation over 50 degrees with the +1.5 articular ball. Leg lengths seemed appropriate. I elect to place these implants. All trial implants were removed. An apex hole ruby engineer was placed. Highly cross-linked polyethylene liner was placed. A DePuy size eight 125 degree angle short neck femoral stem was impacted in position. Upon seating the stem there was a small crack in the calcar. We recognize this, remove the stem, I placed 2 Dall-Miles cables one above the lesser trochanter 1 below to provide any fracture propagation. I then reinserted the implant. A +1.5/36 mm ceramic articular ball was placed in the hip was located but was found to be stable. The implant was stable. Attention drawn toward closing. The wounds irrigated cups ounce of pulsatile lavage solution. I did inject locally with 30 cc of half percent Marcaine with epinephrine. The posterior capsule and external rotators were then repaired through drills in the posterior trochanter with #2 Tycron suture. The IT band gluteal fascia then closed in 1 PDS suture running fashion for subcutaneous tissue then closed with 2 layers the deep layer #1 Vicryl suture subcutaneous tissues with 2-0 Dexon suture in a buried interrupted fashion the skin was closed skin donavan. Leg was then cleaned dried and a sterile dressing was Xeroform, 4 x 4's, sterile ABD pad, and foam tape was applied. Patient then transferred to the recovery in stable condition. Patient tolerated procedure well and there were no complications. Chris Johnston, my physician exceptional children teacher assistant, was present for the entire procedure. His assistance was essential and required for appropriate patient positioning, prepping and draping, surgical exposure, performing the technical details of the operation, placement the implants, closure of the wound, and placement of the sterile bandage. I attest to the content of the Intraoperative Record and any orders documented therein. Any exceptions are noted below.
--- NOTE | 2020-07-05 13:03 | XRay Report ---
SINGLE VIEW PELVIS; SINGLE VIEW RIGHT HIP CLINICAL HISTORY: Postoperative examination. FINDINGS: An AP portable view of the hips and pelvis with a crosstable lateral portable view of the r ight hip are obtained. A bipolar right hip arthroplasty is in near-anatomic alignment. At least 2 cor tical lag screws transfix the acetabular cup. No acute fracture is identified. There are expected pos toperative changes overlying the right hip including skin clips, subcutaneous gas, and soft tissue sw elling. Moderate degenerative changes noted in the left hip. IMPRESSION: Expected postoperative findings status post right hip arthroplasty. No acute fracture is seen. ACT 112: Negative or not required by law. Electronically signed by: Jose Ramon Baer M.D. 07/05/2020 1:01 PM
--- NOTE | 2020-07-05 13:26 | Anesthesiology Progress Note ---
Date of Service July 05, 2020 Anesthesia Post Procedure Vital Signs Vital Signs: Temp Pulse Pulse Resp BP Pulse Ox 07/05/20 13:00 36.2 C L 60 14 120/59 L 100 07/05/20 12:50 60 14 110/76 100 07/05/20 12:40 72 16 114/69 100 07/05/20 12:30 72 16 117/54 L 100 07/05/20 12:23 36.2 C L 72 16 122/53 L 100 07/05/20 07:42 36.5 C 68 20 174/80 H 100 Pain Intensity Right Hip: Pain Intensity: 10 Transfer of Care Handoff Completed per policy Notes Mental Status: alert / awake / arousable and participated in evaluation Patient Amnestic to Procedure: Yes Nausea / Vomiting: adequately controlled Pain: adequately controlled Airway Patency, RR, SpO2: stable & adequate BP & HR: stable & adequate Hydration State: stable & adequate Anesthetic Complications: no major complications apparent and Pt Satisfied with anesthetic care
[2020-07-05] MEDS ORDERED: NALOXONE HCL 0.4 MG/1 ML VIAL/CARP IV PRN (13:35)
[2020-07-05] MEDS ORDERED: MAGNESIUM HYDROXIDE SUSP 30 ML UDC PO PRN (13:35)
[2020-07-05] MEDS ORDERED: bisacodyL 10 MG SUPP PR PRN (13:35)
[2020-07-05] MEDS ORDERED: METOCLOPRAMIDE HCL INJ 5 MG/ML 2 ML VIAL IV PRN (13:35)
[2020-07-05] MEDS ORDERED: ALUMINUM/MAGNESIUM SUSP 30 ML UDC PO PRN (13:35)
[2020-07-05] MEDS ORDERED: HYDROmorphone INJ 0.5 MG/0.5 ML SYR IV PRN (13:35)
[2020-07-05] MEDS: SODIUM CHLORIDE 0.9% 1000ML 1,000 ML IV SCH (14:16)
[2020-07-05] MEDS: KETOROLAC TROMETHAMINE 15 MG/ML VIAL IV SCH ×2 (15:56→21:08)
[2020-07-05] MEDS: ASCORBIC ACID 500 MG TAB PO SCH (16:00)
[2020-07-05] MEDS: FERROUS GLUCONATE 324 MG TAB PO SCH (16:01)
[2020-07-05] MEDS: ceFAZolin 1000MG 1,000 MG/7.5 ML SYR IV SCH (17:58)
[2020-07-05] MEDS ORDERED: TRANEXAMIC ACID / 0.7% NACL 1,000 MG/100 ML BAG IV SCH (18:26)
[2020-07-05] MEDS: oxyCODONE HCL IR 5 MG TAB (IMMEDIATE RELEASE) PO PRN (19:27)
[2020-07-05] MEDS: SENNA 8.6 MG TAB PO SCH (21:06)
[2020-07-05] MEDS: DOCUSATE SODIUM 100 MG CAP PO SCH (21:07)
[2020-07-05] MEDS: ASPIRIN 81 MG ECTAB PO SCH (21:07)
[2020-07-05] MEDS: SIMVASTATIN 20 MG TAB PO SCH (21:08)
[2020-07-06] MEDS: SODIUM CHLORIDE 0.9% 1000ML 1,000 ML IV SCH (02:21)
[2020-07-06] MEDS: oxyCODONE HCL IR 5 MG TAB (IMMEDIATE RELEASE) PO PRN ×2 (02:24→08:00)
[2020-07-06] MEDS: ceFAZolin 1000MG 1,000 MG/7.5 ML SYR IV SCH (03:02)
[2020-07-06] MEDS: KETOROLAC TROMETHAMINE 15 MG/ML VIAL IV SCH ×4 (03:02→21:35)
[2020-07-06 07:00] LABS: Basophils # (auto) 0.02 K/uL (0-0.2); Basophils % (auto) 0.3 %; Eosinophils # (auto) 0.03 K/uL (0-0.5); Eosinophils % (auto) 0.4 %; Hematocrit (blood only) 29.6 % (37-47); Immature Granulocytes # (auto) 0.01 K/uL (0.00-0.02); Immature Granulocytes % (auto) 0.1 %; Lymphocytes # (auto) 0.86 K/uL (1.2-3.4); Lymphocytes % (auto) 11.7 %; Mean Corpuscular Hemoglobin 30.4 pg (25-34); Mean Corpuscular Hgb Conc 33.8 g/dL (32-36); Mean Platelet Volume 10.1 fL (7.4-10.4); Monocytes # (auto) 0.66 K/uL (0.11-0.59); Neutrophils # (auto) 5.77 K/uL (1.4-6.5); Neutrophils % (auto) 78.5 %; Platelet Count 181 K/uL (130-400); RDW Coefficient of Variation 13.2 % (11.5-14.5); RDW Standard Deviation 43.4 fL (36.4-46.3); Red Blood Count 3.29 M/uL (4.2-5.4); White Blood Count 7.35 K/uL (4.8-10.8)
[2020-07-06 07:51] LABS: BUN Creatinine Ratio 20.3 (10-20); Creatinine Clr Calc Pharmacy 25.4 ml/min; Est GFR (African American) 45.2; Potassium 3.8 mmol/L (3.5-5.1)
[2020-07-06] MEDS: ONDANSETRON INJ 2 MG/ML 2 ML VIAL IV PRN ×2 (08:00→23:29)
[2020-07-06] MEDS ORDERED: dexAMETHasone 4 MG TAB PO SCH (08:00)
[2020-07-06] MEDS: ASCORBIC ACID 500 MG TAB PO SCH ×2 (08:02→17:26)
[2020-07-06] MEDS: FERROUS GLUCONATE 324 MG TAB PO SCH ×2 (08:02→17:25)
[2020-07-06] MEDS: IRBESARTAN 150 MG TAB PO SCH (09:33)
[2020-07-06] MEDS: MULTIVITAMIN TAB PO SCH (09:33)
[2020-07-06] MEDS: DOCUSATE SODIUM 100 MG CAP PO SCH ×2 (09:33→21:35)
[2020-07-06] MEDS: amLODIPine BESYLATE 5 MG TAB PO SCH (09:33)
[2020-07-06] MEDS: ASPIRIN 81 MG ECTAB PO SCH ×2 (09:34→21:35)
--- NOTE | 2020-07-06 14:33 | Progress Notes ---
DATE: 07/06/2020 SUBJECTIVE: An 84-year-old female postop day 1 from a right uncemented total hip arthroplasty. She is doing pretty well. It was having a little bit of pain, but the pain medicine took care of it. Therapy went pretty well so far. No chest pain or shortness of breath. Not feeling dizzy or lightheaded. OBJECTIVE: VITAL SIGNS: Temperature is 37.4. Vital signs stable. GENERAL: Shows a pleasant elderly female. She is sitting up in her bedside chair, looks comfortable. EXTREMITIES: Examination of the right hip reveals the leg lengths to be equal. Hip is located. Thigh is soft and supple. She is neurologically intact. She can dorsiflex and plantarflex her foot appropriately. LABORATORY DATA: Hemoglobin 10.0. Hematocrit 29.6. Electrolytes are stable. ASSESSMENT: An 84-year-old female postop day 1 from a right uncemented total hip arthroplasty complicated by a small calcar fracture treated with some cerclage cables. She is doing well. Pain is controlled. Hip is located. She is neurologically intact. Therapy has gone reasonably well. The patient did have this calcar fracture. I did spend some time talking to the patient about this and the fact that we manage this and treat this at time of surgery. I do not think it should be changed her postoperative rehabilitation and I think we can continue to weightbear as tolerated. I do not think there are any adverse effects likely from this and I fully answered all questions. PLAN: 1. DVT prophylaxis including thigh-high TEDs, SCDs, and aspirin twice a day. 2. PT/OT. Weight bear as tolerated. Right total hip protocol. 3. Pain control, doing well with current pain regimen. 4. Disposition: She is hoping to be discharged to rehab. Social service is working on that.
[2020-07-06] MEDS: SENNA 8.6 MG TAB PO SCH (21:35)
[2020-07-06] MEDS: SIMVASTATIN 20 MG TAB PO SCH (21:36)
[2020-07-07] MEDS: KETOROLAC TROMETHAMINE 15 MG/ML VIAL IV SCH ×2 (04:54→10:27)
--- NOTE | 2020-07-07 08:05 | Progress Notes ---
DATE: 07/06/2020 SUBJECTIVE: An 84-year-old female postop day 2 from a right uncemented total hip arthroplasty complicated by calcar fracture. She is doing well. Pain is controlled. She has been getting around pretty well. No chest pain or shortness of breath. Not feeling dizzy or lightheaded. OBJECTIVE: VITAL SIGNS: Temperature 37.0. Vital signs stable. GENERAL: Shows a pleasant elderly frail female. She is sitting up at her bedside this morning and looks pretty comfortable. EXTREMITIES: Examination of the right hip reveals the wound to be clean, dry and intact. No drainage. Thigh is soft and supple. Leg lengths were equal. Hip is located. She is neurologically intact. ASSESSMENT: An 84-year-old female postop day 2 from a right uncemented total hip arthroplasty complicated by calcar fracture. We treated with 2 cerclage cables. She is doing well. Pain is controlled. PLAN: 1. DVT prophylaxis including thigh-high TEDs, SCDs, and aspirin twice a day. 2. PT/OT. She is weightbearing as tolerated on this right leg for the next 6 weeks. She should obey hip precautions. 3. Pain control, doing okay with current pain regimen. 4. Disposition: Plan to discharge to a rehab or detention facility once approved. Just pending approval through insurance.
[2020-07-07] MEDS: FERROUS GLUCONATE 324 MG TAB PO SCH (08:44)
[2020-07-07] MEDS: ASPIRIN 81 MG ECTAB PO SCH (08:45)
[2020-07-07] MEDS: IRBESARTAN 150 MG TAB PO SCH (08:45)
[2020-07-07] MEDS: MULTIVITAMIN TAB PO SCH (08:45)
[2020-07-07] MEDS: DOCUSATE SODIUM 100 MG CAP PO SCH (08:46)
[2020-07-07] MEDS: amLODIPine BESYLATE 5 MG TAB PO SCH (08:46)
[2020-07-07] MEDS: ASCORBIC ACID 500 MG TAB PO SCH (08:46)
== END 2020-07-07 14:19 ==
LOC: 3E 07:24 → ASU 07:24

== ENCOUNTER 2022-07-13 04:28 | Inpatient (IN) ==
--- NOTE | 2022-07-13 05:17 | Emergency Department Note ---
Impression & Plan Right leg weakness Admit to the [facility] ED Provider Note NAME: TOMMY LEYVA AGE: 86 SEX: F ARRIVES VIA: Walk-In INFORMANT: Patient ED PROVIDER(S): Tameka Fuller DO CHIEF COMPLAINT: "Cannot move my right leg" PLAN: Disposition: Admit to the [facility] Condition: Fair MEDICAL DECISION MAKING: This is an 86-year-old female patient presents emergency department complaining that she is having difficulty moving her right leg. Patient awoke from sleep at 1:30 in the morning was able to walk to the bathroom normally but then she sat down to read and after some time was unable to move the right leg. CT of the brain and CTA of the brain and neck were negative. Patient had a normal-appearing EKG. Laboratory studies revealed no leukocytosis and stable H&H. She had a mildly elevated BUN but normal creatinine. All other laboratory studies were unremarkable. I discussed the case with the [facility] and they will evaluate for further inpatient care and neurological evaluation. Triage Nursing notes reviewed and agree with them. Additional history obtained from the sons who are at the bedside Vital Signs: reviewed and remarkable for hypertension Differential diagnosis: TIA, CVA, lower extremity nerve palsy, lumbar radiculopathy Diagnostics interpreted by me: ECG: Normal sinus rhythm at a rate of 68 with first-degree AV block. There is no ST segment elevation or signs of ischemia Cardiac Monitoring: Normal sinus rhythm at a rate of 62 Laboratory studies: See below Imaging studies: As per radiology report CT brain: See report CTA head: See report CTA neck: See report HPI: 86/F arrives for evaluation of right leg weakness. Patient awoke from sleep at 1:30 in the morning and was able to walk to the bathroom normally but then sat down to read and after approximately 45 minutes was unable to move her right leg. PAST MEDICAL HISTORY:See Below PAST SURGICAL HISTORY:See Below FAMILY HISTORY:See Below SOCIAL HISTORY:See Below HOME MEDICATIONS: See list ALLERGIES: None VITALS:See Below PHYSICAL EXAMINATION: HEENT: Head - normocephalic and atraumatic. Pupils are equal, round, and reactive to light. Extraocular eye muscles are intact and sclera are anicteric. Nose - moist nasal mucosa without discharge. Mouth - moist buccal mucosa. Oropharynx is nonerythematous and there is no tonsillar exudate or edema noted. Neck: Supple; no JVD, nuchal rigidity, cervical lymphadenopathy, or auscultated bruits. Heart: Regular rate and rhythm. There is a normal S1 and S2 with no murmurs, clicks, or gallops appreciated. Lungs: Clear to auscultation bilaterally with no wheezes, rales, or rhonchi. Abdomen: Soft, completely nontender, nondistended, with good bowel sounds. There are no palpable pulsatile masses or hepatosplenomegaly. There is no guarding, rigidity, or rebound noted. Extremities: No evidence of cyanosis, clubbing, or edema. There are easily palpable peripheral pulses. Neuro:The patient is awake and alert, oriented to day, time, and place. Muscle strength is 5/5 in all 4 extremities except right lower quadrant which is 1/5 at the hip and knee. Patient does have some pedal push from the right lower extremity. She has no pedal pull of the right lower extremity. The patient has equal movie extra strength bilaterally there are no cerebellar signs. Cranial nerves II through XII are grossly intact. Patient has absent patellar reflexes on the right but normal patellar reflexes on the left. Patient has normal sensation of the thigh, knee, tib-fib and foot on both lower extremities. ED COURSE: Times/Reassessments: 435 the patient was evaluated in room C9. A complete history and physical was performed. A complete neurological exam was performed. a twelve-lead EKG was obtained. An order was placed for continuous cardiac monitoring. The patient was in a normal sinus rhythm at a rate of 62. Patient went for CT of the brain and CTA of the head and neck. Patient requires significant assistance to get up to go to the bathroom. I discussed the case with the [facility] Hospitalist and they were able to evaluate the patient for further inpatient care. Tameka Fuller DO Past Med/Surg History Medical History Aortic insufficiency Borderline diabetes Carpal tunnel syndrome of left wrist Carpal tunnel syndrome of right wrist Chronic kidney disease, stage 3 Encounter for pre-operative examination Hyperlipidemia Hypertension Jaw clicking Lyme disease Myocardial Infarction Osteoarthritis PMR (polymyalgia rheumatica) Polymyalgia rheumatica Tricuspid regurgitation Surgical History History of anesthesia reaction History of appendectomy History of breast biopsy History of carpal tunnel release History of cataract surgery History of colonoscopy History of hysterectomy History of right hip replacement History of tooth extraction Family History Father Colorectal cancer Prostate cancer Uncle Colorectal cancer Brother Myocardial infarction Sister Myocardial infarction Mother Family history of diabetes mellitus Grandmother (Maternal) Family history of diabetes mellitus Other Family history non-contributory No family history of adverse response to anesthesia Denies family history of Ovarian cancer Breast cancer Social History Smoking Status: Never smoker packs per day: 0.25; Second Hand Exposure: No; Do You Dip or Chew Tobacco: No; Hx Alcohol Use: Yes Alcohol type: wine Hx Substance Use: No Preferred Language: Thai Communication Ability: Effective Visual Impairment: No Limitations Hearing Ability: Normal Airplane Rigger Required: No Beliefs That Will Affect Care: None marital status: / Current Living Situation: Alone current occupational status: retired Feels Safe at Home: Yes Childhood Exposure to Second-Hand Smoke: Yes Diet: other Diet Comment: Fiber caffeine: Yes during the past year weight has: remained stable Dental Care, Regularly: Yes Physical Activity Frequency: Daily Seatbelt Use: always Sunscreen Use: No Assistive Devices: Glasses and Walker Allergies Allergies Allergy/AdvReac Type Severity Reaction Status Date / Time No Known Drug Allergies Allergy Verified 06/12/22 08:57 Home Meds Home Medications Medication Instructions Recorded Confirmed aspirin 81 mg tablet,delayed 81 mg PO DAILY 08/05/20 07/13/22 release (Adult Low Dose Aspirin) Previous Rx's Medication Instructions Recorded simvastatin 20 mg tablet 20 mg PO QAM #90 tabs 04/11/22 irbesartan 300 mg tablet 300 mg PO QAM #90 tabs 06/01/22 amlodipine 5 mg tablet 5 mg PO DAILY #90 tabs 06/11/22 Results & Data (ED) Vital Signs Vital Signs - 24 hr 07/13/22 04:32 07/13/22 04:40 07/13/22 05:30 Temperature 36.6 C 36.7 C Temperature Source Temporal Artery Scan Oral Pulse Rate 67 63 Pulse Rate [Left Finger] 63 Pulse Rate from SpO2 Sensor Respiratory Rate 18 18 Respiratory Effort / Characteristics Non-Labored Non-Labored Spontaneous Respiratory Depth Normal Normal Respiratory Pattern Regular Blood Pressure 199/84 H Blood Pressure [Right Arm] 180/81 H Blood Pressure Mean 122 Blood Pressure Mean [Right Arm] 114 Blood Pressure Position [Right Arm] Semi-fowlers Pulse Oximetry 96 96 Oxygen Delivery Method Room Air Room Air Sepsis Recent Fever Within 48 Hours No Sepsis New/Unexplained Change in Mental Status No Sepsis Action Taken by Nursing No Action Required 07/13/22 06:45 07/13/22 07:22 07/13/22 07:30 Temperature 36.8 C Temperature Source Oral Pulse Rate 62 63 Pulse Rate [Left Finger] 62 Pulse Rate from SpO2 Sensor 62 65 Respiratory Rate 18 15 23 Respiratory Effort / Characteristics Non-Labored Spontaneous Respiratory Depth Normal Respiratory Pattern Regular Blood Pressure 160/70 H 160/72 H Blood Pressure [Right Arm] 145/64 H Blood Pressure Mean 100 101 Blood Pressure Mean [Right Arm] 91 Blood Pressure Position [Right Arm] Lying Pulse Oximetry 94 95 96 Oxygen Delivery Method Room Air Sepsis Recent Fever Within 48 Hours Sepsis New/Unexplained Change in Mental Status Sepsis Action Taken by Nursing 07/13/22 08:00 Temperature Temperature Source Pulse Rate 62 Pulse Rate [Left Finger] Pulse Rate from SpO2 Sensor 62 Respiratory Rate 17 Respiratory Effort / Characteristics Respiratory Depth Respiratory Pattern Blood Pressure 162/73 H Blood Pressure [Right Arm] Blood Pressure Mean 102 Blood Pressure Mean [Right Arm] Blood Pressure Position [Right Arm] Pulse Oximetry 96 Oxygen Delivery Method Sepsis Recent Fever Within 48 Hours Sepsis New/Unexplained Change in Mental Status Sepsis Action Taken by Nursing Laboratory Data 07/13/22 04:53 07/13/22 04:53 Lab Results 07/13/22 07/13/22 07/13/22 Range/Units 04:53 04:53 04:53 WBC 4.84 (4.8-10.8) K/ul RBC 3.86 L (4.20-5.40) M/uL Hgb 12.1 (12.0-16.0) g/dl Hct 35.6 L (37.0-47.0) % MCV 92.2 (80.0-100.0) fL MCH 31.3 (25.0-34.0) pg MCHC 34.0 (32.0-36.0) g/dL RDW Std Deviation 42.8 (36.4-46.3) fL RDW Coeff of Danika 12.8 (11.5-14.5) % Plt Count 162 (130-400) K/uL MPV 11.3 (9.4-12.4) fL Immature Gran % (Auto) 0.2 % Neut % (Auto) 52.9 % Lymph % (Auto) 30.2 % Schley % (Auto) 13.4 % Eos % (Auto) 2.3 % Baso % (Auto) 1.0 % Neut # (Auto) 2.56 (1.40-6.50) K/uL Lymph # (Auto) 1.46 (1.2-3.4) K/uL Schley # (Auto) 0.65 H (0.11-0.59) K/uL Eos # (Auto) 0.11 (0-0.50) K/uL Baso # (Auto) 0.05 (0-0.2) K/uL Immature Gran # (Auto) 0.01 (0.01-0.20) K/uL Platelet Estimate Normal (Normal) PT Cancelled INR Cancelled APTT Cancelled PTT Ratio Cancelled Sodium 136 (136-145) mmol/L Potassium 4.2 (3.5-5.1) mmol/L Chloride 106 (98-107) mmol/L Carbon Dioxide 24 (21-32) mmol/L Anion Gap 6 (3-11) BUN 25 H (6-23) mg/dl Creatinine 1.13 (0.6-1.2) mg/dl Est Cr Clr Drug Dosing 28.8 ml/min Est GFR ( Amer) 51.3 ml/min Est GFR (Non-Af Amer) 44.3 ml/min BUN/Creatinine Ratio 22.1 H (10-20) Glucose 108 H (70-99(Fasting)) mg/dl POC Glucose (70-99) mg/dl Calcium 8.8 (8.6-10.3) mg/dl Magnesium 2.3 (1.7-2.4) mg/dl Total Bilirubin 0.4 (0.2-1.0) mg/dl AST 16 (13-39) U/L ALT 13 (7-52) U/L Alkaline Phosphatase 47 (34-104) U/L Troponin I High Sens 6.4 (0-14) pg/ml Total Protein 5.9 L (6.0-8.3) gm/dl Albumin 3.8 (3.4-5.0) gm/dl Globulin 2.1 L (2.5-4.0) gm/dl Albumin/Globulin Ratio 1.8 (0.9-2) SARS-CoV-2, RNA, NAAT (NEGATIVE) Blood Type Antibody Screen 07/13/22 07/13/22 07/13/22 Range/Units 05:15 06:41 06:41 WBC (4.8-10.8) K/ul RBC (4.20-5.40) M/uL Hgb (12.0-16.0) g/dl Hct (37.0-47.0) % MCV (80.0-100.0) fL MCH (25.0-34.0) pg MCHC (32.0-36.0) g/dL RDW Std Deviation (36.4-46.3) fL RDW Coeff of Danika (11.5-14.5) % Plt Count (130-400) K/uL MPV (9.4-12.4) fL Immature Gran % (Auto) % Neut % (Auto) % Lymph % (Auto) % Schley % (Auto) % Eos % (Auto) % Baso % (Auto) % Neut # (Auto) (1.40-6.50) K/uL Lymph # (Auto) (1.2-3.4) K/uL Schley # (Auto) (0.11-0.59) K/uL Eos # (Auto) (0-0.50) K/uL Baso # (Auto) (0-0.2) K/uL Immature Gran # (Auto) (0.01-0.20) K/uL Platelet Estimate (Normal) PT 10.8 INR 1.0 APTT 23.7 PTT Ratio 0.8 Sodium (136-145) mmol/L Potassium (3.5-5.1) mmol/L Chloride (98-107) mmol/L Carbon Dioxide (21-32) mmol/L Anion Gap (3-11) BUN (6-23) mg/dl Creatinine (0.6-1.2) mg/dl Est Cr Clr Drug Dosing ml/min Est GFR ( Amer) ml/min Est GFR (Non-Af Amer) ml/min BUN/Creatinine Ratio (10-20) Glucose (70-99(Fasting)) mg/dl POC Glucose 108 H (70-99) mg/dl Calcium (8.6-10.3) mg/dl Magnesium (1.7-2.4) mg/dl Total Bilirubin (0.2-1.0) mg/dl AST (13-39) U/L ALT (7-52) U/L Alkaline Phosphatase (34-104) U/L Troponin I High Sens (0-14) pg/ml Total Protein (6.0-8.3) gm/dl Albumin (3.4-5.0) gm/dl Globulin (2.5-4.0) gm/dl Albumin/Globulin Ratio (0.9-2) SARS-CoV-2, RNA, NAAT (NEGATIVE) Blood Type AB Positive Antibody Screen NEGATIVE 07/13/22 Range/Units 08:02 WBC (4.8-10.8) K/ul RBC (4.20-5.40) M/uL Hgb (12.0-16.0) g/dl Hct (37.0-47.0) % MCV (80.0-100.0) fL MCH (25.0-34.0) pg MCHC (32.0-36.0) g/dL RDW Std Deviation (36.4-46.3) fL RDW Coeff of Danika (11.5-14.5) % Plt Count (130-400) K/uL MPV (9.4-12.4) fL Immature Gran % (Auto) % Neut % (Auto) % Lymph % (Auto) % Schley % (Auto) % Eos % (Auto) % Baso % (Auto) % Neut # (Auto) (1.40-6.50) K/uL Lymph # (Auto) (1.2-3.4) K/uL Schley # (Auto) (0.11-0.59) K/uL Eos # (Auto) (0-0.50) K/uL Baso # (Auto) (0-0.2) K/uL Immature Gran # (Auto) (0.01-0.20) K/uL Platelet Estimate (Normal) PT INR APTT PTT Ratio Sodium (136-145) mmol/L Potassium (3.5-5.1) mmol/L Chloride (98-107) mmol/L Carbon Dioxide (21-32) mmol/L Anion Gap (3-11) BUN (6-23) mg/dl Creatinine (0.6-1.2) mg/dl Est Cr Clr Drug Dosing ml/min Est GFR ( Amer) ml/min Est GFR (Non-Af Amer) ml/min BUN/Creatinine Ratio (10-20) Glucose (70-99(Fasting)) mg/dl POC Glucose (70-99) mg/dl Calcium (8.6-10.3) mg/dl Magnesium (1.7-2.4) mg/dl Total Bilirubin (0.2-1.0) mg/dl AST (13-39) U/L ALT (7-52) U/L Alkaline Phosphatase (34-104) U/L Troponin I High Sens (0-14) pg/ml Total Protein (6.0-8.3) gm/dl Albumin (3.4-5.0) gm/dl Globulin (2.5-4.0) gm/dl Albumin/Globulin Ratio (0.9-2) SARS-CoV-2, RNA, NAAT NEGATIVE (NEGATIVE) Blood Type Antibody Screen Administered Medications Amlodipine Besylate (Amlodipine Besylate 5 Mg Tab) 5 mg PO DAILY [place] Stop: 08/12/22 10:59 Last Admin: 07/13/22 11:39 Dose: 5 mg Documented By: NEVILLE Aspirin (Aspirin 81 Mg Ectab) 81 mg PO DAILY [place] Stop: 08/12/22 10:59 Last Admin: 07/13/22 11:39 Dose: 81 mg Documented By: NEVILLE Sodium Chloride (Nss 1000ml) 1,000 mls @ 50 mls/hr IV .Q20H [place] Stop: 08/12/22 10:42 Last Infusion: 07/13/22 17:53 Dose: 50 mls/hr Documented By: Admin: 07/13/22 11:41 Dose: 80 mls/hr Documented By: NEVILLE Methylprednisolone 60 mg/ (Syringe) 0.96 mls @ 1.5 mls/min IV Q6H [place] Stop: 08/12/22 13:59 Last Admin: 07/13/22 15:31 Dose: 1.5 mls/min Documented By: JAYLAN Losartan Potassium (Losartan Potassium 50 Mg Tab) 100 mg PO DAILY [facility] Stop: 08/12/22 10:59 Last Admin: 07/13/22 11:40 Dose: 100 mg Documented By: NEVILLE Simvastatin (Simvastatin 20 Mg Tab) 20 mg PO QAM [place] Stop: 08/12/22 10:59 Last Admin: 07/13/22 11:39 Dose: 20 mg Documented By: NEVILLE Discontinued Medications Sodium Chloride (Nss) 500 mls @ 999 mls/hr IV .Q31M ONE Stop: 07/13/22 06:59 Last Infusion: 07/13/22 07:12 Dose: 0 mls/hr Documented By: Admin: 07/13/22 06:43 Dose: 999 mls/hr Documented By: JUAN JOSE Ioversol (Optiray 320 500ml) 125 ml IV ONCE ONE Stop: 07/13/22 06:12 Last Admin: 07/13/22 06:12 Dose: 111 ml Documented By: BARBARA Imaging Data Radiologist's Impression: Head CT 07/13/22 04:[address] DOSE: HISTORY: Bilateral leg weakness. neuro deficit, acute stroke suspected TECHNIQUE: Multiaxial CT images of the head were performed without the use of intravenous contrast. Automated exposure control was utilized for this study. A dose lowering technique was utilized adhering to the principles of ALARA. Comparison: Head CT 09/28/2015. Findings: The paranasal sinuses and mastoid air cells are clear. The calvarium and skull base are intact. There is no mass, hematoma, midline shift, acute infarct. White matter hypodensity is nonspecific but suggestive of microvascular ischemic change. The ventricles and sulci demonstrate mild age-related involutional changes. Impression: No acute intracranial abnormality. Atrophy and microvascular ischemic changes. ACT 112: Negative or not required by law. Electronically signed by: Henrik Jackson M.D. 07/13/2022 7:12 AM Head CTA 07/13/22 04:57 HEAD & NECK CTA HISTORY: Bilateral leg weakness. neuro deficit, acute stroke suspected TECHNIQUE: Multiaxial CT images of the head were performed following the intravenous administration of contrast to evaluate the major cerebral vessels. Multiaxial CT images of the neck were also performed following the intravenous administration of contrast to evaluate the major cervical vessels. Maximum intensity projection images were also obtained. A dose lowering technique was utilized adhering to the principles of ALARA. COMPARISON: Head CT 09/28/2015. FINDINGS: There is no mass, hematoma, midline shift, or acute infarct. Visualized intracranial internal carotid arteries, distal vertebral arteries, and basilar artery are widely patent. There is no significant stenosis, occlusion, or aneury sm seen within the bilateral ACAs, MCAs, or consulting services manager. The major dural venous sinuses are patent. Mild calcified plaque within the bilateral carotid siphons. The aortic arch and proximal great vessels are widely patent. There is no significant stenosis, occlusion, or dissection identified within the bilateral common carotid, internal carotid, or vertebral arteries. Multiple subcentimeter thyroid nodules. These do not meet CT criteria for follow-up given the patient's age. Moderate calcified plaque within the bilateral carotid bulbs without significant stenosis. IMPRESSION: 1. No significant stenosis, occlusion, or aneurysm within the [place]. 2. No significant stenosis, occlusion, or dissection identified within the carotid or vertebral arteries. ACT 112: Negative or not required by law. Electronically signed by: Henrik Jackson M.D. 07/13/2022 7:20 AM Neck CTA 07/13/22 04:57 HEAD & NECK CTA HISTORY: Bilateral leg weakness. neuro deficit, acute stroke suspected TECHNIQUE: Multiaxial CT images of the head were performed following the intravenous administration of contrast to evaluate the major cerebral vessels. Multiaxial CT images of the neck were also performed following the intravenous administration of contrast to evaluate the major cervical vessels. Maximum intensity projection images were also obtained. A dose lowering technique was utilized adhering to the principles of ALARA. COMPARISON: Head CT 09/28/2015. FINDINGS: There is no mass, hematoma, midline shift, or acute infarct. Visualized i ntracranial internal carotid arteries, distal vertebral arteries, and basilar artery are widely patent. There is no significant stenosis, occlusion, or aneurysm seen within the bilateral ACAs, MCAs, or consulting services manager. The major dural venous sinuses are patent. Mild calcified plaque within the bilateral carotid siphons. The aortic arch and proximal great vessels are widely patent. There is no significant stenosis, occlusion, or dissection identified within the bilateral common carotid, internal carotid, or vertebral arteries. Multiple subcentimeter thyroid nodules. These do not meet CT criteria for follow-up given the patient's age. Moderate calcified plaque within the bilateral carotid bulbs without significant stenosis. IMPRESSION: 1. No significant stenosis, occlusion, or aneurysm within the [place]. 2. No significant stenosis, occlusion, or dissection identified within the carotid or vertebral arteries. ACT 112: Negative or not required by law. Electronically signed by: Henrik Jackson M.D. 07/13/2022 7:20 AM Discharge Plan Visit Data Chief Complaint: Leg Injury/Pain Stated Complaint: R LEG WEAKNESS ED Provider: Tameka Fuller Discharge Problem: Right leg weakness Patient Disposition: Admitted As Inpatient Discharge Instructions Interventions: ED Discharge Assessment Last Done: 07/13/22 10:44
[2022-07-13 05:49] LABS: Albumin Globulin Ratio 1.8 (0.9-2); Albumin Level 3.8 gm/dl (3.4-5.0); BUN Creatinine Ratio 22.1 (10-20); Bilirubin,Total 0.4 mg/dl (0.2-1.0); Calcium 8.8 mg/dl (8.6-10.3); Creatinine Clr Calc Pharmacy 28.8 ml/min; Est GFR (African American) 51.3 ml/min; Est GFR (Non-African American) 44.3 ml/min; Globulin 2.1 gm/dl (2.5-4.0); Magnesium 2.3 mg/dl (1.7-2.4); Potassium 4.2 mmol/L (3.5-5.1); Total Protein 5.9 gm/dl (6.0-8.3)
[2022-07-13 05:55] LABS: Troponin I High Sensitivity 6.4 pg/ml (0-14)
[2022-07-13] MEDS ORDERED: OPTIRAY 320 500ml IV ONE (06:11)
[2022-07-13 06:17] LABS: Basophils # (auto) 0.05 K/uL (0-0.2); Eosinophils # (auto) 0.11 K/uL (0-0.50); Eosinophils % (auto) 2.3 %; Immature Granulocytes # (auto) 0.01 K/uL (0.01-0.20); Immature Granulocytes % (auto) 0.2 %; Lymphocytes # (auto) 1.46 K/uL (1.2-3.4); Lymphocytes % (auto) 30.2 %; Monocytes # (auto) 0.65 K/uL (0.11-0.59); Monocytes % (auto) 13.4 %; Neutrophils # (auto) 2.56 K/uL (1.40-6.50); Neutrophils % (auto) 52.9 %; Platelet Estimate Normal (Normal)
[2022-07-13 06:18] LABS: Hematocrit (blood only) 35.6 % (37.0-47.0); Hemoglobin 12.1 g/dl (12.0-16.0); Mean Corpuscular Hemoglobin 31.3 pg (25.0-34.0); Mean Corpuscular Volume 92.2 fL (80.0-100.0); Mean Platelet Volume 11.3 fL (9.4-12.4); Platelet Count 162 K/uL (130-400); RDW Coefficient of Variation 12.8 % (11.5-14.5); RDW Standard Deviation 42.8 fL (36.4-46.3); Red Blood Count 3.86 M/uL (4.20-5.40); White Blood Count 4.84 K/ul (4.8-10.8)
[2022-07-13] MEDS ORDERED: SODIUM CHLORIDE 0.9% 500 ML IV ONE (06:29)
--- NOTE | 2022-07-13 07:15 | CT Scan Report ---
HEAD CT NONCONTRAST CT DOSE: HISTORY: Bilateral leg weakness. neuro deficit, acute stroke suspected TECHNIQUE: Multiaxial CT images of the head were performed without the use of intravenous contrast. A utomated exposure control was utilized for this study. A dose lowering technique was utilized adheri ng to the principles of ALARA. Comparison: Head CT 09/28/2015. Findings: The paranasal sinuses and mastoid air cells are clear. The calvarium and skull base are int act. There is no mass, hematoma, midline shift, acute infarct. White matter hypodensity is nonspecifi c but suggestive of microvascular ischemic change. The ventricles and sulci demonstrate mild age-rela mark involutional changes. Impression: No acute intracranial abnormality. Atrophy and microvascular ischemic changes. ACT 112: Negative or not required by law. Electronically signed by: Henrik Jackson M.D. 07/13/2022 7:12 AM
--- NOTE | 2022-07-13 07:21 | CT Scan Report ---
HEAD & NECK CTA HISTORY: Bilateral leg weakness. neuro deficit, acute stroke suspected TECHNIQUE: Multiaxial CT images of the head were performed following the intravenous administration o f contrast to evaluate the major cerebral vessels. Multiaxial CT images of the neck were also perform ed following the intravenous administration of contrast to evaluate the major cervical vessels. Maxim um intensity projection images were also obtained. A dose lowering technique was utilized adhering to the principles of ALARA. COMPARISON: Head CT 09/28/2015. FINDINGS: There is no mass, hematoma, midline shift, or acute infarct. Visualized intracranial internal carotid arteries, distal vertebral arteries, and basilar artery are widely patent. There is no significant s tenosis, occlusion, or aneurysm seen within the bilateral ACAs, MCAs, or postbed stitcher. The major dural venous sinuses are patent. Mild calcified plaque within the bilateral carotid siphons. The aortic arch and proximal great vessels are widely patent. There is no significant stenosis, occ lusion, or dissection identified within the bilateral common carotid, internal carotid, or vertebral arteries. Multiple subcentimeter thyroid nodules. These do not meet CT criteria for follow-up given t he patient's age. Moderate calcified plaque within the bilateral carotid bulbs without significant st enosis. IMPRESSION: 1. No significant stenosis, occlusion, or aneurysm within the [place]. 2. No significant stenosis, occlusion, or dissection identified within the carotid or vertebral arter ies. ACT 112: Negative or not required by law. Electronically signed by: Henrik Jackson M.D. 07/13/2022 7:20 AM
--- NOTE | 2022-07-13 07:21 | CT Scan Report ---
HEAD & NECK CTA HISTORY: Bilateral leg weakness. neuro deficit, acute stroke suspected TECHNIQUE: Multiaxial CT images of the head were performed following the intravenous administration o f contrast to evaluate the major cerebral vessels. Multiaxial CT images of the neck were also perform ed following the intravenous administration of contrast to evaluate the major cervical vessels. Maxim um intensity projection images were also obtained. A dose lowering technique was utilized adhering to the principles of ALARA. COMPARISON: Head CT 09/28/2015. FINDINGS: There is no mass, hematoma, midline shift, or acute infarct. Visualized intracranial internal carotid arteries, distal vertebral arteries, and basilar artery are widely patent. There is no significant s tenosis, occlusion, or aneurysm seen within the bilateral ACAs, MCAs, or special technical operations officer. The major dural venous sinuses are patent. Mild calcified plaque within the bilateral carotid siphons. The aortic arch and proximal great vessels are widely patent. There is no significant stenosis, occ lusion, or dissection identified within the bilateral common carotid, internal carotid, or vertebral arteries. Multiple subcentimeter thyroid nodules. These do not meet CT criteria for follow-up given t he patient's age. Moderate calcified plaque within the bilateral carotid bulbs without significant st enosis. IMPRESSION: 1. No significant stenosis, occlusion, or aneurysm within the [place]. 2. No significant stenosis, occlusion, or dissection identified within the carotid or vertebral arter ies. ACT 112: Negative or not required by law. Electronically signed by: Henrik Jackson M.D. 07/13/2022 7:20 AM
[2022-07-13 07:24] LABS: Partial Thromboplastin Ratio 0.8; Partial Thromboplastin Time 23.7 Seconds (21.0-31.0); Prothrombin Time 10.8 Seconds (9.0-12.0)
--- NOTE | 2022-07-13 08:29 | History & Physical Report ---
Date of Service July 13, 2022 Assessment & Plan (1) Ischemic cerebrovascular accident (CVA): Plan: Working diagnosis. Causing right lower extremity weakness of acute onset. She denies back pain. Head CT scan negative for acute bleed. Head and neck CTA negative for critical stenosis. Brain MRI scan pending. Continue aspirin and statin therapy. Neurology consultation pending. Anticipate addition of Plavix for dual antiplatelet therapy. We will obtain OT and PT assessments when appropriate. Speech therapy will see patient and hopefully diet will be started soon (2) Hypertension: Plan: Stable. Continue current medication (3) Hyperlipidemia: Plan: Continue statin therapy. Check fasting lipid profile (4) Chronic kidney disease, stage 3: Plan: Serial labs. Monitor intake and output Plan Probable eventual discharge to rehab facility. Will obtain OT and PT assessments when appropriate History of Present Illness Chief Complaint: Right leg weakness Primary Care Provider: Kyle Daniel MD 86-year-old female who awoke from sleep with right lower extremity weakness. She denies any other neurological deficits. She was brought to the ED by family members. Initial head CT scan negative for hemorrhage. Head and neck CTA negative for any significant vascular stenosis. Working diagnosis is acute ischemic CVA producing right lower extremity weakness. She denies any other associated neurological deficits. She has requested DNR status. She recently had a cardiac echo in April which will not be repeated. Brain MRI scan will be ordered along with fasting lipid profile. She is already on aspirin, blood pressure medications, and a statin. Fasting lipid profile pending. Neurology consultation requested. Will obtain OT and PT evaluations when appropriate. N.p.o. until cleared by speech Allergies Allergy/AdvReac Type Severity Reaction Status Date / Time No Known Drug Allergies Allergy Verified 06/12/22 08:57 Home Medications Medication Instructions Recorded Confirmed Type aspirin 81 mg tablet,delayed 81 mg PO DAILY 08/05/20 07/13/22 History release (Adult Low Dose Aspirin) simvastatin 20 mg tablet 20 mg PO QAM #90 tabs 04/11/22 07/13/22 Rx irbesartan 300 mg tablet 300 mg PO QAM #90 tabs 06/01/22 07/13/22 Rx amlodipine 5 mg tablet 5 mg PO DAILY #90 tabs 06/11/22 07/13/22 Rx Past Med/Surg History Medical History Aortic insufficiency Borderline diabetes Carpal tunnel syndrome of left wrist Carpal tunnel syndrome of right wrist Chronic kidney disease, stage 3 Encounter for pre-operative examination Hyperlipidemia Hypertension Jaw clicking Lyme disease Myocardial Infarction Osteoarthritis PMR (polymyalgia rheumatica) Polymyalgia rheumatica Tricuspid regurgitation Surgical History History of anesthesia reaction History of appendectomy History of breast biopsy History of carpal tunnel release History of cataract surgery History of colonoscopy History of hysterectomy History of right hip replacement History of tooth extraction Family History Father Colorectal cancer Prostate cancer Uncle Colorectal cancer Brother Myocardial infarction Sister Myocardial infarction Mother Family history of diabetes mellitus Grandmother (Maternal) Family history of diabetes mellitus Other Family history non-contributory No family history of adverse response to anesthesia Denies family history of Ovarian cancer Breast cancer Social History Smoking Status: Never smoker packs per day: 0.25; Second Hand Exposure: No; Do You Dip or Chew Tobacco: No; Hx Alcohol Use: No Hx Substance Use: No Preferred Language: Divehi Communication Ability: Effective Visual Impairment: No Limitations Hearing Ability: Normal Despatching And Receiving Clerk Required: No Beliefs That Will Affect Care: None marital status: / Current Living Situation: Alone current occupational status: retired Feels Safe at Home: Yes Childhood Exposure to Second-Hand Smoke: Yes Diet: other Diet Comment: Fiber caffeine: Yes during the past year weight has: remained stable Dental Care, Regularly: Yes Physical Activity Frequency: Daily Seatbelt Use: always Sunscreen Use: No Assistive Devices: Glasses Review of Systems Review of Systems: Constitutional-no fever or chills ENT-no blurred vision, no double vision, no epistaxis, no sore throat Respiratory-no cough, no wheezing, no shortness of breath Cardiac-no palpitations, no chest pain, no syncope GI-no nausea, vomiting, diarrhea, melena, hematochezia -no urinary retention, no urinary incontinence, no dysuria, no hematuria Musculoskeletal-no joint pain, no muscle tenderness Skin-no bruising, no rashes, no pruritus Neuro-right lower extremity weakness of acute onset. Psych-no depression, no anxiety Physical Exam Physical Exam: General-alert and oriented x3, no fevers, no chills HEENT-head atraumatic and normocephalic, pupils equal and reactive to light, extraocular muscles intact Neck-no lymphadenopathy or thyromegaly, trachea midline Chest-clear to auscultation percussion. No rales wheezing or rhonchi Cardiac-regular rate and rhythm, normal S1 and S2 Abdomen-normal bowel sounds, nontender, no hepatosplenomegaly Extremities-no cyanosis, clubbing, or edema Neuro-cranial nerves II through XII intact, right lower extremity exhibits weakness with straight leg raising, right ankle dorsiflexion, right ankle plantarflexion. Bilateral upper extremity secretarial stenographer strength is equal. Psych-normal affect, normal mood Results & Data Results & Data Vital Signs (Past 12 Hours) Vital Signs Temp Pulse Pulse Resp BP BP Pulse Ox 07/13/22 08:00 62 17 162/73 H 96 07/13/22 07:30 63 23 160/72 H 96 07/13/22 07:22 62 15 160/70 H 95 07/13/22 06:45 36.8 C 62 18 145/64 H 94 07/13/22 05:30 63 07/13/22 04:40 36.7 C 63 18 180/81 H 96 07/13/22 04:32 36.6 C 67 18 199/84 H 96 O2 Del Method 07/13/22 08:00 07/13/22 07:30 07/13/22 07:22 07/13/22 06:45 Room Air 07/13/22 05:30 07/13/22 04:40 Room Air 07/13/22 04:32 Room Air Laboratory Results 07/13/22 04:53 07/13/22 04:53 PG Care Time/CCT Total # of Minutes Spent Total Time Spent with Patient: Total time spent is greater than 50% in coordination of care (as documented) at patient's floor/unit and/or counseling patient: Coding Level of Care Code 01755 INT INP/OBS CARE 3/75MIN Diagnoses Ischemic cerebrovascular accident (CVA) I63.9 Hypertension I10 Hyperlipidemia E78.5 Chronic kidney disease, stage 3 N18.30
[2022-07-13] MEDS ORDERED: SODIUM CHLORIDE 0.9% 1000ML 1,000 ML IV SCH (10:43)
[2022-07-13] MEDS ORDERED: IRBESARTAN 150 MG TAB PO SCH (10:43)
[2022-07-13] MEDS ORDERED: ONDANSETRON INJ 2 MG/ML 2 ML VIAL IV PRN (10:43)
--- NOTE | 2022-07-13 11:35 | Magnetic Resonance Report ---
MRI OF THE BRAIN WITHOUT CONTRAST CLINICAL HISTORY: suspected CVA COMPARISON STUDY: Head CT and CTA of the head performed earlier today. TECHNIQUE: Utilizing a 1.5 Landy magnet and dedicated coil, multiplanar, multiecho imaging of the bra in was performed without IV contrast. FINDINGS: There are no foci of restricted diffusion to suggest acute infarct. No acute intracranial h emorrhage, midline shift or mass effect is present. Ventricular system is unremarkable. Basal cistern s are patent. There are no extra-axial collections. Numerous white matter T2 hyperintense foci sugges t small vessel disease. Calvarial signal is within normal limits. IMPRESSION: No acute intracranial findings. ACT 112: Negative or not required by law. Electronically signed by: Nick Noble M.D. 07/13/2022 11:34 AM
[2022-07-13] MEDS: SIMVASTATIN 20 MG TAB PO SCH (11:39)
[2022-07-13] MEDS: ASPIRIN 81 MG ECTAB PO SCH (11:39)
[2022-07-13] MEDS: amLODIPine BESYLATE 5 MG TAB PO SCH (11:39)
[2022-07-13] MEDS: LOSARTAN POTASSIUM 50 MG TAB PO SCH (11:40)
--- NOTE | 2022-07-13 15:26 | Electrocardiogram Report ---
Test Reason : Blood Pressure : / mmHG Vent. Rate : 060 BPM Atrial Rate : 060 BPM P-R Int : 228 ms QRS Dur : 080 ms QT Int : 422 ms P-R-T Axes : 062 -13 027 degrees QTc Int : 422 ms Sinus rhythm with 1st degree A-V block Otherwise normal ECG When compared with ECG of 11-SEP-2021 11:25, No significant change was found Confirmed by Kyle Schulz ([id number]) on 07/13/2022 3:26:26 PM Referred By: REFERRED SELF Confirmed By:Joaquin Schulz
[2022-07-13] MEDS: methylPREDNISolone 60 MG in SYRINGE 0 ML IV SCH ×2 (15:31→20:51)
--- NOTE | 2022-07-13 16:24 | Neurology Consultation ---
Date of Consultation July 13, 2022 Assessment & Plan (1) Right leg weakness: A 86 yo Female admitted with new onset right foot drop and right foot numbness. One examine she has weakness w ankle dorsiflexion and eversion. Sensation reduce in right dorsum of foot but intact. Plantar flexion is strong. Reflexes absent at the ankles. Toes downgoing. Concern for new onset right peroneal neuropathy possibly at the knee. Other Dx include L5 radic. Sciatic neuropathy is less likely. Will arrange for MRI of the lumbar spine. Likely will need EMG of right leg as outpatient. History of Present Illness Reason for Consultation: Right leg weakness Attending Physician: Alli Fabian MD History of Present Illness An 86 yo w a history of right hip replacement and no prior history of CVA admitted with new onset right leg weakness. She denies history of similar symptoms. Denies pain or numbness. Denies any recent falls or crossing her legs. Denies any symptoms in her arms or left leg. Admitted this morning to exclude CVA. Neuro consulted. Allergies Allergy/AdvReac Type Severity Reaction Status Date / Time No Known Drug Allergies Allergy Verified 06/12/22 08:57 Home Medications Medication Instructions Recorded Confirmed Type aspirin 81 mg tablet,delayed 81 mg PO DAILY 08/05/20 07/13/22 History release (Adult Low Dose Aspirin) simvastatin 20 mg tablet 20 mg PO QAM #90 tabs 04/11/22 07/13/22 Rx irbesartan 300 mg tablet 300 mg PO QAM #90 tabs 06/01/22 07/13/22 Rx amlodipine 5 mg tablet 5 mg PO DAILY #90 tabs 06/11/22 07/13/22 Rx Patient History Medical History Aortic insufficiency Borderline diabetes Carpal tunnel syndrome of left wrist Carpal tunnel syndrome of right wrist Chronic kidney disease, stage 3 Encounter for pre-operative examination Hyperlipidemia Hypertension Jaw clicking Lyme disease Myocardial Infarction Osteoarthritis PMR (polymyalgia rheumatica) Polymyalgia rheumatica Tricuspid regurgitation Surgical History History of anesthesia reaction History of appendectomy History of breast biopsy History of carpal tunnel release History of cataract surgery History of colonoscopy History of hysterectomy History of right hip replacement History of tooth extraction Family History Father Colorectal cancer Prostate cancer Uncle Colorectal cancer Brother Myocardial infarction Sister Myocardial infarction Mother Family history of diabetes mellitus Grandmother (Maternal) Family history of diabetes mellitus Other Family history non-contributory No family history of adverse response to anesthesia Denies family history of Ovarian cancer Breast cancer Social History Smoking Status: Never smoker packs per day: 0.25; Second Hand Exposure: No; Do You Dip or Chew Tobacco: No; Hx Alcohol Use: Yes Alcohol type: wine Hx Substance Use: No Preferred Language: Greenlandic Communication Ability: Effective Visual Impairment: No Limitations Hearing Ability: Normal Sponge Hooker Required: No Beliefs That Will Affect Care: None marital status: / Current Living Situation: Alone current occupational status: retired Feels Safe at Home: Yes Childhood Exposure to Second-Hand Smoke: Yes Diet: other Diet Comment: Fiber caffeine: Yes during the past year weight has: remained stable Dental Care, Regularly: Yes Physical Activity Frequency: Daily Seatbelt Use: always Sunscreen Use: No Assistive Devices: Glasses and Walker Physical Exam Physical Exam: Seen and examined in the ER. Speech is clear. face symmetric. Stength intact in upper extremities. Sensation reduce in dorsum of right foot. Ankle jerks absent. Knee jerks brisk. Toes down going. Right dosiflexion and eversion weakness. Weakness with hyperflexion on right as well. Results & Data Vital Signs (Past 12 Hours) Vital Signs Temp Pulse Pulse Resp BP BP Pulse Ox 07/13/22 15:37 36.5 C 69 18 146/67 H 96 07/13/22 14:34 36.7 C 67 16 177/76 H 96 07/13/22 11:22 68 19 158/74 H 97 07/13/22 11:18 69 17 158/74 H 97 07/13/22 10:00 69 16 100 07/13/22 09:47 60 07/13/22 09:36 59 L 18 169/62 H 97 07/13/22 08:30 63 17 165/73 H 97 07/13/22 08:00 62 17 162/73 H 96 07/13/22 07:30 63 23 160/72 H 96 07/13/22 07:22 62 15 160/70 H 95 07/13/22 06:45 36.8 C 62 18 145/64 H 94 07/13/22 05:30 63 07/13/22 04:40 36.7 C 63 18 180/81 H 96 07/13/22 04:32 36.6 C 67 18 199/84 H 96 O2 Del Method 07/13/22 15:37 Room Air 07/13/22 14:34 Room Air 07/13/22 11:22 Room Air 07/13/22 11:18 Room Air 07/13/22 10:00 07/13/22 09:47 07/13/22 09:36 07/13/22 08:30 07/13/22 08:00 07/13/22 07:30 07/13/22 07:22 07/13/22 06:45 Room Air 07/13/22 05:30 07/13/22 04:40 Room Air 07/13/22 04:32 Room Air Diagnostic Findings MRI brain w/o on 07/13/22: No evidence of acute stroke or acute intracranial abnormality.
--- NOTE | 2022-07-13 17:37 | Magnetic Resonance Report ---
MR lumbar spine wo con CLINICAL HISTORY: 86 years-old Female with lumbar radiculopathy, RLE weak. Chronic low back pain wit h right lower extremity weakness. COMPARISON: CT lumbar spine 09/11/2021. TECHNIQUE: Multiplanar, multi sequence MRI of the lumbar spine was performed without intravenous cont rast. FINDINGS: The filter press operator localizer images demonstrate no gross extraspinal abnormality. Right hip arthroplasty. Conu s medullaris terminates at L1. Normal signal within the imaged thoracic spinal cord. Study is motion degraded. 4 cm T2 hyperintense structure within the right renal sinus suggestive of a probable cyst v ersus less likely dilated renal pelvis. Additional bilateral renal cysts. Trace left pleural effusion . 1.4 cm L1 vertebral body hemangioma. Moderate marrow edema at T12-L1, L1-L2 and to a lesser extent at L2-L3 with areas of decreased T1 marrow signal. No acute fracture, subluxation or endplate erosion . Moderate central canal stenosis at T11-T12 secondary to a posterior annular disc bulge. T12-L1: Moderate to severe intervertebral disc space narrowing. Spondylotic spurring with circumfere ntial annular disc bulge, ligamentum flavum thickening, and advanced facet arthrosis. Mild to moderat e central canal stenosis, AP dimension of the thecal sac measuring 8 mm. Mild to moderate bilateral f oraminal stenosis. L1-L2: Severe intervertebral disc space narrowing. Spondylotic spurring with circumferential annular disc bulge with disc osteophyte complex. Ligamentum flavum thickening with advanced facet arthrosis and trace facet effusions. Mild central canal stenosis, AP dimension of the thecal sac measuring 9 mm . Moderate bilateral foraminal narrowing. L2-L3: Severe intervertebral disc space narrowing. Spondylotic spurring with circumferential annular disc bulge and disc osteophyte complex. Ligamentum flavum thickening with advanced facet arthrosis. Mild central canal stenosis, AP dimension of the thecal sac measuring 9 mm. Mild to moderate left wit h moderate right neural foraminal narrowing. L3-L4: Moderate intervertebral disc space narrowing with spondylotic spurring and circumferential an nular disc bulge with posterior disc osteophyte complex. Ligamentum flavum thickening with advanced f acet arthrosis. Mild central canal stenosis, AP dimension of the thecal sac measuring 9 mm. Mild-to-m oderate right with severe left neural foraminal narrowing. L4-L5: 4 mm anterolisthesis, likely degenerative related. Moderate disc space narrowing with circumf erential annular disc bulge and posterior disc uncovering. Moderate spondylotic spurring with ligamen sydni flavum thickening and severe facet arthrosis. Moderate central canal stenosis, AP dimension of th e thecal sac measuring 7 mm. Severe narrowing of the lateral recesses. Mild to moderate bilateral for aminal narrowing. L5-S1: Severe intervertebral disc space narrowing. Spondylotic spurring with circumferential annular disc bulge and posterior disc osteophyte complex. Ligamentum flavum thickening with advanced facet a rthrosis. Central canal is patent. [id number] right with severe left neural foraminal narrowing . IMPRESSION: 1. Marrow edema within the upper to mid lumbar spine is likely related to Modic type I endplate degen eration. No acute fracture identified. 2. Advanced discogenic degeneration and facet arthrosis as above resulting in multilevel central shahnaz l and neural foraminal narrowing. ACT 112: Negative or not required by law. The above report was generated using voice recognition software. It may contain grammatical, syntax o r spelling errors. Dictated: 07/13/2022 4:38 PM Transcribed: 07/13/2022 5:20 PM Scott [id number] KATIE_Daniel [id number] Electronically signed by: Seferino Driver M.D. 07/13/2022 5:35 PM
[2022-07-14] MEDS: methylPREDNISolone 60 MG in SYRINGE 0 ML IV SCH ×2 (00:55→07:47)
[2022-07-14 06:56] LABS: Chol HDL Ratio 2.3 (0-5)
[2022-07-14] MEDS: amLODIPine BESYLATE 5 MG TAB PO SCH (08:35)
[2022-07-14] MEDS: ASPIRIN 81 MG ECTAB PO SCH (08:35)
[2022-07-14] MEDS: SIMVASTATIN 20 MG TAB PO SCH (08:35)
[2022-07-14] MEDS: LOSARTAN POTASSIUM 50 MG TAB PO SCH (08:35)
--- NOTE | 2022-07-14 11:20 | Neurology Progress Note ---
Date of Service July 14, 2022 Assessment & Plan (1) Right leg weakness: Plan An 86 year old female with Hx of right hip replacement and new onset right foot drop. MRI lumbar spine showed severe degernative changes at multiple levels including L4-S1. MRI Brain was Negative for acute stroke. Recommend outpatient EMG- I will order/arrange with [facility] Neuro scheduling. PT/OT for rehab needs. Ok to discharge from my standpoint. Would recommend patient follow up with orthopedics or spine surgery as well. Admission and Anticipated Discharge Date Admission Date: July 13, 2022 Subjective Patient was seen and examined. Resting in chair. No family at bedside. MRI lumbar spine completed. Denies any new or worsening symptoms. Physical Exam Physical Exam: On examine patient has right foot drop. Right ankle dorsiflexion is 4-/5. Eversion is 3/5. Sensation is reduce to dorsum of right foot. Results & Data Vital Signs (Past 12 Hours) Vital Signs Temp Pulse Pulse Resp BP Pulse Ox O2 Del Method 07/14/22 08:00 83 07/14/22 07:33 36.5 C 88 18 135/69 96 Room Air 07/14/22 03:06 36.6 C 73 18 139/71 95 Room Air Diagnostic Findings MRI of the lumbar spine: The crackling press operator localizer images demonstrate no gross extraspinal abnormality. Right hip arthroplasty. Conus medullaris terminates at L1. Normal signal within the imaged thoracic spinal cord. Study is motion degraded. 4 cm T2 hyperintense structure within the right renal sinus suggestive of a probable cyst versus less likely dilated renal pelvis. Additional bilateral renal cysts. Trace left pleural effusion. 1.4 cm L1 vertebral body hemangioma. Moderate marrow edema at T12-L1, L1-L2 and to a lesser extent at L2-L3 with areas of decreased T1 marrow signal. No acute fracture, subluxation or endplate erosion. Moderate central canal stenosis at T11-T12 secondary to a posterior annular disc bulge. T12-L1: Moderate to severe intervertebral disc space narrowing. Spondylotic spurring with circumferential annular disc bulge, ligamentum flavum thickening, and advanced facet arthrosis. Mild to moderate central canal stenosis, AP dimension of the thecal sac measuring 8 mm. Mild to moderate bilateral foraminal stenosis. L1-L2: Severe intervertebral disc space narrowing. Spondylotic spurring with circumferential annular disc bulge with disc osteophyte complex. Ligamentum flavum thickening with advanced facet arthrosis and trace facet effusions. Mild central canal stenosis, AP dimension of the thecal sac measuring 9 mm. Moderate bilateral foraminal narrowing. L2-L3: Severe intervertebral disc space narrowing. Spondylotic spurring with circumferential annular disc bulge and disc osteophyte complex. Ligamentum flavum thickening with advanced facet arthrosis. Mild central canal stenosis, AP dimension of the thecal sac measuring 9 mm. Mild to moderate left with moderate right neural foraminal narrowing. L3-L4: Moderate intervertebral disc space narrowing with spondylotic spurring and circumferential annular disc bulge with posterior disc osteophyte complex. Ligamentum flavum thickening with advanced facet arthrosis. Mild central canal stenosis, AP dimension of the thecal sac measuring 9 mm. [id number] right with severe left neural foraminal narrowing. L4-L5: 4 mm anterolisthesis, likely degenerative related. Moderate disc space narrowing with circumferential annular disc bulge and posterior disc uncovering. Moderate spondylotic spurring with ligamentum flavum thickening and severe facet arthrosis. Moderate central canal stenosis, AP dimension of the thecal sac measuring 7 mm. Severe narrowing of the lateral recesses. Mild to moderate bilateral foraminal narrowing. L5-S1: Severe intervertebral disc space narrowing. Spondylotic spurring with circumferential annular disc bulge and posterior disc osteophyte complex. Ligamentum flavum thickening with advanced facet arthrosis. Central canal is patent. [id number] right with severe left neural foraminal narrowing. IMPRESSION: 1. Marrow edema within the upper to mid lumbar spine is likely related to Modic type I endplate degeneration. No acute fracture identified. 2. Advanced discogenic degeneration and facet arthrosis as above resulting in multilevel central canal and neural foraminal narrowing.
--- NOTE | 2022-07-14 14:20 | Hospitalist Progress Note ---
Date of Service July 14, 2022 Assessment & Plan (1) Ischemic cerebrovascular accident (CVA): Plan: Ruled out. Brain MRI scan is negative. Head CT scan negative for acute bleed. Head and neck CTA negative for critical stenosis. No further studies needed. Appreciate neurology consultation and recommendations. (2) Hypertension: Plan: Stable. Continue current medication (3) Hyperlipidemia: Plan: Continue statin therapy. Check fasting lipid profile (4) Chronic kidney disease, stage 3: Plan: Serial labs. Monitor intake and output (5) Right leg weakness: Plan: Appears to be of neuropathic origin either central or peripheral. Lumbar MRI scan results noted. She has chronic disease without the need for immediate surgical intervention. Continue steroid therapy and anticipate discharge on a prednisone tapering dose. Plan Hopeful discharge to home if she is able to ambulate well enough with a walker. Possibly tomorrow, July 15 Admission and Anticipated Discharge Date Admission Date: July 13, 2022 Subjective Alert and oriented. No distress. Daughter is at the bedside. Right lower extremity strength and function have improved with parenteral steroids which have been tapered down today. Case discussed with neurology. Lumbar MRI reveals chronic changes with no reason for immediate surgical intervention. IV fluids discontinued. If she is able to ambulate with a walker, she will not need SNF placement at discharge. Hopefully home tomorrow, July 15 on a prednisone tapering dose. Review of Systems Review of Systems: Constitutional-no fever or chills ENT-no blurred vision, no double vision, no epistaxis, no sore throat Respiratory-no cough, no wheezing, no shortness of breath Cardiac-no palpitations, no chest pain, no syncope GI-no nausea, vomiting, diarrhea, melena, hematochezia -no urinary retention, no urinary incontinence, no dysuria, no hematuria Musculoskeletal-no joint pain, no muscle tenderness. Right lower extremity weakness has improved Skin-no bruising, no rashes, no pruritus Neuro-right lower extremity weakness has improved Psych-no depression, no anxiety Physical Exam Physical Exam: General-alert and oriented x3, no fevers, no chills HEENT-head atraumatic and normocephalic, pupils equal and reactive to light, extraocular muscles intact Neck-no lymphadenopathy or thyromegaly, trachea midline Chest-clear to auscultation percussion. No rales wheezing or rhonchi Cardiac-regular rate and rhythm, normal S1 and S2 Abdomen-normal bowel sounds, nontender, no hepatosplenomegaly Extremities-no cyanosis, clubbing, or edema Neuro-cranial nerves II through XII intact, right lower extremity exhibits weakness with straight leg raising, right ankle dorsiflexion, right ankle plantarflexion, but has improved. Bilateral upper extremity lap runner strength is equal. Psych-normal affect, normal mood Results & Data Results & Data Vital Signs (Past 12 Hours) Vital Signs Temp Pulse Pulse Resp BP Pulse Ox O2 Del Method 07/14/22 13:27 36.3 C L 82 128/69 92 Room Air 07/14/22 11:48 37.0 C 88 18 128/63 98 Room Air 07/14/22 08:00 83 07/14/22 07:33 36.5 C 88 18 135/69 96 Room Air 07/14/22 03:06 36.6 C 73 18 139/71 95 Room Air Laboratory Results 07/13/22 04:53 07/13/22 04:53 PG Care Time/CCT Total # of Minutes Spent Total Time Spent with Patient: Total time spent is greater than 50% in coordination of care (as documented) at patient's floor/unit and/or counseling patient: Coding Level of Care Code 17423 SUB INP/OBS CARE 3/50MIN Diagnoses Ischemic cerebrovascular accident (CVA) I63.9 Hypertension I10 Hyperlipidemia E78.5 Chronic kidney disease, stage 3 N18.30 Right leg weakness R29.898
[2022-07-14] MEDS: methylPREDNISolone 40 MG in SYRINGE 0 ML IV SCH ×2 (15:44→22:20)
[2022-07-15] MEDS: methylPREDNISolone 40 MG in SYRINGE 0 ML IV SCH (06:32)
[2022-07-15] MEDS: LOSARTAN POTASSIUM 50 MG TAB PO SCH (08:10)
[2022-07-15] MEDS: amLODIPine BESYLATE 5 MG TAB PO SCH (08:10)
[2022-07-15] MEDS: ASPIRIN 81 MG ECTAB PO SCH (08:10)
[2022-07-15] MEDS: SIMVASTATIN 20 MG TAB PO SCH (08:11)
--- NOTE | 2022-07-15 13:52 | Hospitalist Progress Note ---
Date of Service July 15, 2022 Assessment & Plan (1) Ischemic cerebrovascular accident (CVA): Plan: Ruled out. Brain MRI scan is negative. Head CT scan negative for acute bleed. Head and neck CTA negative for critical stenosis. No further studies needed. Appreciate neurology consultation and recommendations. (2) Hypertension: Plan: Stable. Continue current medication (3) Hyperlipidemia: Plan: Continue statin therapy. Check fasting lipid profile (4) Chronic kidney disease, stage 3: Plan: Serial labs. Monitor intake and output (5) Right leg weakness: Plan: Appears to be of neuropathic origin either central or peripheral. Lumbar MRI scan results noted. She has chronic disease without the need for immediate surgical intervention. Continue steroid therapy and anticipate discharge on a prednisone tapering dose. Parenteral Solu-Medrol converted to oral prednisone today, July 15 Plan Discharge to SNF or [facility] tomorrow, July 16 Admission and Anticipated Discharge Date Admission Date: July 13, 2022 Subjective Alert and oriented. She continues to improve. Parenteral steroid therapy switch to oral prednisone. This will be tapered off as an outpatient. Placement pending Review of Systems Review of Systems: Constitutional-no fever or chills ENT-no blurred vision, no double vision, no epistaxis, no sore throat Respiratory-no cough, no wheezing, no shortness of breath Cardiac-no palpitations, no chest pain, no syncope GI-no nausea, vomiting, diarrhea, melena, hematochezia -no urinary retention, no urinary incontinence, no dysuria, no hematuria Musculoskeletal-no joint pain, no muscle tenderness. Right lower extremity weakness has improved Skin-no bruising, no rashes, no pruritus Neuro-right lower extremity weakness has improved Psych-no depression, no anxiety Physical Exam Physical Exam: General-alert and oriented x3, no fevers, no chills HEENT-head atraumatic and normocephalic, pupils equal and reactive to light, extraocular muscles intact Neck-no lymphadenopathy or thyromegaly, trachea midline Chest-clear to auscultation percussion. No rales wheezing or rhonchi Cardiac-regular rate and rhythm, normal S1 and S2 Abdomen-normal bowel sounds, nontender, no hepatosplenomegaly Extremities-no cyanosis, clubbing, or edema Neuro-cranial nerves II through XII intact, right lower extremity exhibits weakness with straight leg raising, right ankle dorsiflexion, right ankle plantarflexion, but has improved. 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 Psych-normal affect, normal mood Results & Data Results & Data Vital Signs (Past 12 Hours) Vital Signs Temp Pulse Resp BP Pulse Ox O2 Del Method 07/15/22 07:28 36.6 C 70 16 140/62 94 Room Air Laboratory Results 07/13/22 04:53 07/13/22 04:53 PG Care Time/CCT Total # of Minutes Spent Total Time Spent with Patient: Total time spent is greater than 50% in coordination of care (as documented) at patient's floor/unit and/or counseling patient: Coding Level of Care Code 23197 SUB INP/OBS CARE 3/50MIN Diagnoses Ischemic cerebrovascular accident (CVA) I63.9 Hypertension I10 Hyperlipidemia E78.5 Chronic kidney disease, stage 3 N18.30 Right leg weakness R29.898
[2022-07-15 14:20] LABS: Appearance Urine Clear (Clear); Bilirubin Urine Negative (Negative); Blood Urine Negative (Negative); Color Urine Yellow; Glucose Urine UA Negative (Negative); Ketones Urine Negative (Negative); Leukocyte Esterase Urine Negative (Negative); Nitrite Urine Negative (Negative); Protein Urine Negative (Negative); Specific Gravity Urine 1.009 (1.000-1.030); Urobilinogen Urine Negative (Negative)
[2022-07-15] MEDS: predniSONE 10 MG TABLET PO SCH ×2 (15:28→21:27)
[2022-07-16] MEDS: predniSONE 10 MG TABLET PO SCH ×3 (09:28→20:20)
[2022-07-16] MEDS: SIMVASTATIN 20 MG TAB PO SCH (09:28)
[2022-07-16] MEDS: amLODIPine BESYLATE 5 MG TAB PO SCH (09:28)
[2022-07-16] MEDS: LOSARTAN POTASSIUM 50 MG TAB PO SCH (09:28)
[2022-07-16] MEDS: ASPIRIN 81 MG ECTAB PO SCH (09:28)
--- NOTE | 2022-07-16 18:32 | Hospitalist Progress Note ---
Date of Service July 16, 2022 Assessment & Plan (1) Ischemic cerebrovascular accident (CVA): Plan: Ruled out. Brain MRI scan is negative. Head CT scan negative for acute bleed. Head and neck CTA negative for critical stenosis. No further studies needed. Appreciate neurology consultation and recommendations. (2) Hypertension: Plan: Stable. Continue current medication (3) Hyperlipidemia: Plan: Continue statin therapy. Check fasting lipid profile (4) Chronic kidney disease, stage 3: Plan: Serial labs. Monitor intake and output (5) Right leg weakness: Plan: Appears to be of neuropathic origin either central or peripheral. Lumbar MRI scan results noted. She has chronic disease without the need for immediate surgical intervention. Continue steroid therapy and anticipate discharge on a prednisone tapering dose. Parenteral Solu-Medrol converted to oral prednisone July 15. Continue p.o. prednisone 10 mg 3 times daily for now. Plan Discharge to SNF or [facility] once accepted. Case management involved. Admission and Anticipated Discharge Date Admission Date: July 13, 2022 Subjective Patient says that her weakness is getting better with steroids Review of Systems Review of Systems: All systems reviewed & are unremarkable except as noted in Subjective Physical Exam Physical Exam: General: Awake, conversant Heart: S1, S2/regular rate and rhythm, no murmur rubs or gallops Lungs: Clear to auscultation bilaterally. Normal effort Abdomen: Soft/nontender/nondistended. No hepatosplenomegaly Extremities: No clubbing/cyanosis. No edema Behavior: Appropriate, cooperative Results & Data Results & Data Vital Signs (Past 12 Hours) Vital Signs Temp Pulse Resp BP Pulse Ox O2 Del Method 07/16/22 15:17 36.3 C L 63 16 129/68 98 Room Air 07/16/22 08:21 Room Air 07/16/22 07:45 36.6 C 69 16 152/67 H 98 Room Air PG Care Time/CCT Total # of Minutes Spent Total Time Spent with Patient: Total time spent is greater than 50% in coordination of care (as documented) at patient's floor/unit and/or counseling patient: Coding Level of Care Code 50424 SUB INP/OBS CARE 2/35MIN Diagnoses Ischemic cerebrovascular accident (CVA) I63.9 Hypertension I10 Hyperlipidemia E78.5 Chronic kidney disease, stage 3 N18.30 Right leg weakness R29.898
[2022-07-17] MEDS: ASPIRIN 81 MG ECTAB PO SCH (08:58)
[2022-07-17] MEDS: amLODIPine BESYLATE 5 MG TAB PO SCH (08:58)
[2022-07-17] MEDS: SIMVASTATIN 20 MG TAB PO SCH (08:59)
[2022-07-17] MEDS: LOSARTAN POTASSIUM 50 MG TAB PO SCH (08:59)
[2022-07-17] MEDS: predniSONE 10 MG TABLET PO SCH ×2 (08:59→20:09)
--- NOTE | 2022-07-17 18:27 | Hospitalist Progress Note ---
Date of Service July 17, 2022 Assessment & Plan (1) Ischemic cerebrovascular accident (CVA): Plan: Ruled out. Brain MRI scan is negative. Head CT scan negative for acute bleed. Head and neck CTA negative for critical stenosis. No further studies needed. Appreciate neurology consultation and recommendations. (2) Hypertension: Plan: Stable. Continue current medication (3) Hyperlipidemia: Plan: Continue statin therapy. Check fasting lipid profile (4) Chronic kidney disease, stage 3: Plan: Serial labs. 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 Lumbar MRI scan results noted. She has chronic disease without the need for immediate surgical intervention. Continue steroid therapy and anticipate discharge on a prednisone tapering dose. Parenteral Solu-Medrol converted to oral prednisone July 15. Reduce prednisone to 10 mg twice daily. Plan Discharge to SNF or [facility] once accepted. Case management involved. Admission and Anticipated Discharge Date Admission Date: July 13, 2022 Subjective Patient is doing better overall. Denies chest pain or shortness of breath Review of Systems Review of Systems: All systems reviewed & are unremarkable except as noted in Subjective Physical Exam Physical Exam: General: Awake, conversant Heart: S1, S2/regular rate and rhythm, no murmur rubs or gallops Lungs: Clear to auscultation bilaterally. Normal effort Abdomen: Soft/nontender/nondistended. No hepatosplenomegaly Extremities: No clubbing/cyanosis. No edema Behavior: Appropriate, cooperative Results & Data Results & Data Vital Signs (Past 12 Hours) Vital Signs Temp Pulse Resp BP BP Pulse Ox O2 Del Method 07/17/22 15:08 36.7 C 69 16 119/59 L 96 Room Air 07/17/22 07:57 36.4 C L 59 L 16 169/70 H 169/75 H 97 Room Air PG Care Time/CCT Total # of Minutes Spent Total Time Spent with Patient: Total time spent is greater than 50% in coordination of care (as documented) at patient's floor/unit and/or counseling patient: Coding Level of Care Code 72448 SUB INP/OBS CARE 2/35MIN Diagnoses Ischemic cerebrovascular accident (CVA) I63.9 Hypertension I10 Hyperlipidemia E78.5 Chronic kidney disease, stage 3 N18.30 Right leg weakness R29.898
[2022-07-18] MEDS: SIMVASTATIN 20 MG TAB PO SCH (09:08)
[2022-07-18] MEDS: LOSARTAN POTASSIUM 50 MG TAB PO SCH (09:08)
[2022-07-18] MEDS: ASPIRIN 81 MG ECTAB PO SCH (09:09)
[2022-07-18] MEDS: predniSONE 10 MG TABLET PO SCH ×2 (09:09→19:55)
[2022-07-18] MEDS: amLODIPine BESYLATE 5 MG TAB PO SCH (09:09)
--- NOTE | 2022-07-18 17:28 | Hospitalist Progress Note ---
Date of Service July 18, 2022 Assessment & Plan (1) Ischemic cerebrovascular accident (CVA): Plan: Ruled out. Brain MRI scan is negative. Head CT scan negative for acute bleed. Head and neck CTA negative for critical stenosis. No further studies needed. Appreciate neurology consultation and recommendations. (2) Hypertension: Plan: Stable. Continue current medication (3) Hyperlipidemia: Plan: Continue statin therapy. Check fasting lipid profile (4) Chronic kidney disease, stage 3: Plan: Serial labs. 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 Lumbar MRI scan results noted. She has chronic disease without the need for immediate surgical intervention. Continue steroid therapy and anticipate discharge on a prednisone tapering dose. Parenteral Solu-Medrol converted to oral prednisone July 15. Reduced prednisone to 10 mg twice daily on 07/17. Plan Discharge to SNF or [facility] once accepted. Case management involved. Spoke to son Admission and Anticipated Discharge Date Admission Date: July 13, 2022 Subjective Patient feels well. Denies chest pain or shortness of breath. Right lower extremity weakness is improving. Review of Systems Review of Systems: All systems reviewed & are unremarkable except as noted in Subjective Physical Exam Physical Exam: General: Awake, conversant Heart: S1, S2/regular rate and rhythm, no murmur rubs or gallops Lungs: Clear to auscultation bilaterally. Normal effort Abdomen: Soft/nontender/nondistended. No hepatosplenomegaly Extremities: No clubbing/cyanosis. No edema Behavior: Appropriate, cooperative Results & Data Results & Data Vital Signs (Past 12 Hours) Vital Signs Temp Pulse Resp BP Pulse Ox O2 Del Method 07/18/22 15:22 36.9 C 70 16 121/58 L 94 Room Air 07/18/22 07:15 36.5 C 63 18 134/77 97 Room Air PG Care Time/CCT Total # of Minutes Spent Total Time Spent with Patient: Total time spent is greater than 50% in coordination of care (as documented) at patient's floor/unit and/or counseling patient: Coding Level of Care Code 13434 SUB INP/OBS CARE 2/35MIN Diagnoses Ischemic cerebrovascular accident (CVA) I63.9 Hypertension I10 Hyperlipidemia E78.5 Chronic kidney disease, stage 3 N18.30 Right leg weakness R29.898
[2022-07-19] MEDS: predniSONE 10 MG TABLET PO SCH (09:31)
[2022-07-19] MEDS: LOSARTAN POTASSIUM 50 MG TAB PO SCH (09:32)
[2022-07-19] MEDS: amLODIPine BESYLATE 5 MG TAB PO SCH (09:32)
[2022-07-19] MEDS: ASPIRIN 81 MG ECTAB PO SCH (09:33)
[2022-07-19] MEDS: SIMVASTATIN 20 MG TAB PO SCH (09:33)
--- NOTE | 2022-07-19 12:20 | Discharge Summary ---
Date of Service July 19, 2022 Admission HPI Per Admitting Provider 86-year-old female who awoke from sleep with right lower extremity weakness. She denies any other neurological deficits. She was brought to the ED by family members. Initial head CT scan negative for hemorrhage. Head and neck CTA negative for any significant vascular stenosis. Working diagnosis is acute ischemic CVA producing right lower extremity weakness. She denies any other associated neurological deficits. She has requested DNR status. She recently had a cardiac echo in April which will not be repeated. Brain MRI scan will be ordered along with fasting lipid profile. She is already on aspirin, blood pressure medications, and a statin. Fasting lipid profile pending. Neurology consultation requested. Will obtain OT and PT evaluations when appropriate. N.p.o. until cleared by speech Admission Exam Per Admitting Provider General-alert and oriented x3, no fevers, no chills HEENT-head atraumatic and normocephalic, pupils equal and reactive to light, extraocular muscles intact Neck-no lymphadenopathy or thyromegaly, trachea midline Chest-clear to auscultation percussion. No rales wheezing or rhonchi Cardiac-regular rate and rhythm, normal S1 and S2 Abdomen-normal bowel sounds, nontender, no hepatosplenomegaly Extremities-no cyanosis, clubbing, or edema Neuro-cranial nerves II through XII intact, right lower extremity exhibits weakness with straight leg raising, right ankle dorsiflexion, right ankle plantarflexion. 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 Psych-normal affect, normal mood Principal Diagnosis Right lower extremity weakness secondary to lumbar radiculopathy. Stroke ruled out. Discharge Exam General: Awake, conversant Heart: S1, S2/regular rate and rhythm, no murmur rubs or gallops Lungs: Clear to auscultation bilaterally. Normal effort Abdomen: Soft/nontender/nondistended. No hepatosplenomegaly Extremities: No clubbing/cyanosis. No edema Behavior: Appropriate, cooperative Discharge Data Allergies Allergy/AdvReac Type Severity Reaction Status Date / Time No Known Drug Allergies Allergy Verified 06/12/22 08:57 Consultations 07/13/22 08:03 ED Decision to Admit Stat 07/13/22 10:43 Consult Neurology Routine Ordered Studies 07/13/22 04:57 CT angio head w con Stat CT angio neck with con Stat CT head/brain wo con Stat 07/13/22 08:30 MRI Brain [MR brain wo con] Routine 07/13/22 13:52 MRI Lumbar Spine [MR lumbar spine wo con] Urgent Hospital Course (1) Ischemic cerebrovascular accident (CVA): Ruled out. Brain MRI scan is negative. Head CT scan negative for acute bleed. Head and neck CTA negative for critical stenosis. No further studies needed. Appreciate neurology consultation and recommendations. (2) Hypertension: Stable. Continue current medication (3) Hyperlipidemia: Continue statin therapy. Check fasting lipid profile (4) Chronic kidney disease, stage 3: Serial labs. 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 Lumbar MRI scan results noted. She has chronic disease without the need for immediate surgical intervention. Discharge on a prednisone tapering dose. Parenteral Solu-Medrol converted to oral prednisone July 15. Reduced prednisone to 10 mg twice daily on 07/17. Plan Discharge to SNF Total Time Total Time Spent Total Time Spent (In Minutes): 35 Discharge Plan Discharge Items Patient Disposition: Transfer Custodial Fac Reason For Visit: SUSPECTED CVA Discharge Diagnosis: Lumbar radiculopathy leading to R leg weakness Activity: As commented below Activity Comment: Per PT/OT recommendations Non-emergency contact: Primary Care Provider Call non-emergency contact if: you have any medication questions and your symptoms worsen Follow-up/Referrals: Kyle Daniel MD [Primary Care Provider] - Eunice Conn MD [Physician] - 09/04/22 10:15 am ([facility]- Please arrive by 10am) Diet: Heart Healthy Addtl Attending Provider Instructions: Advised to follow-up with PCP in 1 week Pending Studies at Discharge: No Stand-Alone Forms: [facility] Skilled Items Patient informed of condition?: Yes DNR: Yes Discharge Level of Care: Acute rehab Communicable Disease: No Discharge Prognosis: Stable Lines: None Urinary Catheter: No Medications and DC Order Prescriptions: New prednisone 10 mg Tablet 10 mg PO BID Qty: 30 0RF Rx Instructions: 1 tab twice daily for 1 week then 1 tab daily for 1 week, then stop Continued aspirin [Adult Low Dose Aspirin] 81 mg tablet,delayed release (DR/EC) 81 mg PO DAILY simvastatin 20 mg tablet 20 mg PO QAM Qty: 90 3RF irbesartan 300 mg tablet 300 mg PO QAM Qty: 90 3RF amlodipine 5 mg tablet 5 mg PO DAILY Qty: 90 3RF Patient Comments: TAKES QAM Discharge Orders: Discharge Order (Routine); Ordered 07/19/22 Ordered By: Ludmila Lilly Admission Data Admit Date/Time: 07/13/22 08:22 Attending Provider: Ludmila Lilly Admit Provider: Alli Fabian Primary Care Provider: Kyle Daniel Other Providers: [facility] ; [place] ; [facility] ; Alli Fabian ; Ricardo Mercado Other Interventions: Discharge Summary Assessment (RN) Last Done: 07/19/22 12:45 Coding Level of Care Code 48032 INP/OBS DISCH >30 MIN Diagnoses Ischemic cerebrovascular accident (CVA) I63.9 Hypertension I10 Hyperlipidemia E78.5 Chronic kidney disease, stage 3 N18.30 Right leg weakness R29.898
== END 2022-07-19 13:39 | DRG 552 ==
LOC: ED 04:28 → SUATTDRO 08:22 → EDINP 08:22 → 2S 10:44 → 3N 07-14 13:21

== ENCOUNTER 2024-02-18 09:03 | Inpatient (IN) ==
[2024-02-18] MEDS: ALUMINUM/MAGNESIUM SUSP 30 ML UDC PO STA (09:22)
--- NOTE | 2024-02-18 09:25 | Emergency Department Note ---
Impression & Plan Chest pain, Abdominal pain ED Provider Note NAME: TOMMY LEYVA AGE: 88 SEX: F : 1935 ARRIVES VIA: Walk-In INFORMANT: Patient ED PROVIDER(S): Nicholas Helton DO CHIEF COMPLAINT: Chest pain HPI: Patient is an 88-year-old female with a past medical history of aortic insufficiency, hypertension, hyperlipidemia who presents to the ER for midsternal burning in the subxiphoid region that radiates to the back and up and through the chest. She notes this has been present since 12:00. No arm or jaw pain. No shortness of breath. No other belly pain. No dysuria, urgency, or frequency. She describes as a burning pain. She took some Tums with some mild improvement. ADDITIONAL HISTORY OBTAINED: Per HPI Chronic Medical/Social Conditions Affecting Care: Per HPI PAST MEDICAL HISTORY:See Below PAST SURGICAL HISTORY:See Below FAMILY HISTORY:See Below SOCIAL HISTORY:See Below HOME MEDICATIONS:See Below ALLERGIES:See Below VITALS:See Below PHYSICAL EXAMINATION: GENERAL: Sitting up in bed, alert, well appearing, well nourished, no distress, non-toxic EYE EXAM: normal conjunctiva. OROPHARYNX: no exudate, no erythema, lips, buccal mucosa, and tongue normal and mucous membranes are moist NECK: supple, no nuchal rigidity, no adenopathy, non-tender LUNGS: Clear to auscultation. Normal chest wall mechanics HEART: no murmurs, S1 normal and S2 normal ABDOMEN: abdomen soft, non-tender, normo-active bowel sounds, no masses, no rebound or guarding. UPPER EXTREMITIES: upper extremities are grossly normal. LOWER EXTREMITIES: No pitting edema. NEURO EXAM: Normal sensorium, cranial nerves II-XII grossly intact, normal speech, no gross weakness of arms, no gross weakness of legs. MEDICAL DECISION MAKING: Patient is an 88-year-old female who presents to the ER for the below stated complaint. IV was established and blood work was obtained. Labs showed no significant leukocytosis or anemia. BMP along with LFTs bilirubin was unremarkable. Troponins were negative x 2. Lipase is normal. Chest x-ray is clean. Ultrasound of the gallbladder was unremarkable. Upon presentation pain appeared to be in the subxiphoid region and did track up into the chest. It was reproducible on exam but EKG did show a new left bundle. This was discussed with Dr. Schulz. Patient was initially given a GI cocktail with no improvement, nitro with no improvement and then morphine resolve the pain. She was given a second dose of morphine when it reoccurred. Patient was admitted for further workup. Consults/Care Managements Discussions: Per [facility] Triage Nursing notes reviewed. Limited review of prior medical records performed Vital Signs: reviewed and remarkable for HTN Differential diagnosis: Cardiac ischemia, aortic dissection, pulmonary embolism, pneumothorax, pneumonia, pericarditis, myocarditis, esophageal rupture, GERD, cholecystitis, pancreatitis, musculoskeletal, as well as other pathologies. ER treatment provided: See below Diagnostics interpreted by me include EKG and cardiac monitoring as listed below: -Cardiac Monitoring: An order was placed for continuous cardiac monitoring. The monitor shows a rate of 70 with sinus rhythm. -ECG: Sinus rhythm rate 78 Left axis Left bundle branch block QTc 474 -Laboratory studies:Interpreted by me as stated above in MDM and shown below. Imaging studies: Xrays: As interpreted by me: Portable AP upright 1 view of the chest shows no focal infiltrate CTs show: None Ultrasound the gallbladder was unremarkable Procedures:none Critical Care: None Past Med/Surg History Problem List (Updated 02/18/24 @ 13:43 by Nicholas Helton DO) Abdominal pain (Acute) Chest pain (Acute) LBBB (left bundle branch block) Encounter for Medicare annual wellness exam Peroneal nerve injury Right leg weakness (Acute) Right leg weakness Carpal tunnel syndrome Hypertension Hyperlipidemia Lyme disease (Acute) Osteoporosis Prediabetes Tricuspid regurgitation Mild-moderate on 2019 stress echo Vitamin D deficiency Dilated renal pelvis (Acute) Aortic insufficiency Mild on 2020 stress echo 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, right Arthritis Gross hematuria Chronic bladder pain Ascending aortic aneurysm Trochanteric bursitis, left hip Degenerative joint disease of left hip Lumbar spondylosis Chronic kidney disease, stage 3 Medical History PMR (polymyalgia rheumatica) Lyme disease Carpal tunnel syndrome of right wrist Carpal tunnel syndrome of left wrist Encounter for pre-operative examination Polymyalgia rheumatica Osteoarthritis Borderline diabetes Jaw clicking Myocardial Infarction Surgical History History of right hip replacement History of anesthesia reaction History of breast biopsy History of carpal tunnel release History of hysterectomy History of colonoscopy History of appendectomy History of tooth extraction History of cataract surgery Family History Father Colorectal cancer Prostate cancer Uncle Colorectal cancer Brother Myocardial infarction Sister Myocardial infarction Mother Diabetes Hypertension Grandmother (Maternal) Family history of diabetes mellitus Other Family history non-contributory No family history of adverse response to anesthesia Denies family history of Ovarian cancer Breast cancer Social History Smoking Status: Never smoker Tobacco Type: Cigarettes Age Started Using Tobacco: 31; Age Quit Using Tobacco: 49; packs per day: 0.25; Second Hand Exposure: No; Do You Dip or Chew Tobacco: No; Hx Alcohol Use: Yes Alcohol type: wine Alcohol Intake Frequency: Monthly or Less Hx Substance Use: No Preferred Language: Khmer Communication Ability: Effective Visual Impairment: No Limitations Hearing Ability: Normal Wood Filler Required: No Beliefs That Will Affect Care: None marital status: / Current Living Situation: Alone current occupational status: retired 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 Feels Safe at Home: Yes Childhood Exposure to Second-Hand Smoke: Yes Diet: other Diet Comment: Fiber caffeine: Yes during the past year weight has: remained stable Dental Care, Regularly: Yes Physical Activity Frequency: Daily Seatbelt Use: always Sunscreen Use: No Assistive Devices: Walker Allergies Allergies Allergy/AdvReac Type Severity Reaction Status Date / Time No Known Drug Allergies Allergy Verified 02/10/24 09:03 Home Meds Home Medications Medication Instructions Recorded Confirmed aspirin 81 mg tablet,delayed 81 mg PO DAILY 08/05/20 02/18/24 release (Adult Low Dose Aspirin) Previous Rx's Medication Instructions Recorded amlodipine 5 mg tablet 5 mg PO DAILY #90 tabs 05/20/23 irbesartan 300 mg tablet 300 mg PO QAM #90 tabs 05/20/23 simvastatin 20 mg tablet 20 mg PO QAM #90 tabs 05/20/23 erythromycin 5 mg/gram (0.5 %) eye 1.25 cm ophthalmic (eye) TID #3.5 02/10/24 ointment grams Results & Data (ED) Vital Signs Vital Signs - 24 hr 02/18/24 09:13 02/18/24 09:15 02/18/24 09:17 Temperature 36.6 C Temperature Source Oral Pulse Rate 73 Pulse Rate [Apical] Pulse Rate from SpO2 Sensor Respiratory Rate 21 Respiratory Effort / Characteristics Non-Labored Spontaneous Respiratory Depth Normal Respiratory Pattern Regular Blood Pressure 188/153 H Blood Pressure [Right Arm] Blood Pressure Mean 164 Blood Pressure Mean [Right Arm] Blood Pressure Position [Right Arm] Pulse Oximetry 98 96 Oxygen Delivery Method Room Air Room Air Room Air Sepsis Recent Fever Within 48 Hours No Sepsis New/Unexplained Change in Mental Status No Sepsis Action Taken by Nursing No Action Required 02/18/24 09:18 02/18/24 09:39 02/18/24 09:45 Temperature Temperature Source Pulse Rate 70 76 Pulse Rate [Apical] 74 Pulse Rate from SpO2 Sensor 77 Respiratory Rate 20 24 Respiratory Effort / Characteristics Non-Labored Spontaneous Respiratory Depth Normal Respiratory Pattern Regular Blood Pressure 135/76 Blood Pressure [Right Arm] 173/87 H Blood Pressure Mean 95 Blood Pressure Mean [Right Arm] 115 Blood Pressure Position [Right Arm] Pulse Oximetry 95 Oxygen Delivery Method Room Air Sepsis Recent Fever Within 48 Hours Sepsis New/Unexplained Change in Mental Status Sepsis Action Taken by Nursing 02/18/24 10:15 02/18/24 10:33 02/18/24 10:45 Temperature Temperature Source Pulse Rate 63 63 64 Pulse Rate [Apical] Pulse Rate from SpO2 Sensor 58 L 62 64 Respiratory Rate 16 17 24 Respiratory Effort / Characteristics Respiratory Depth Respiratory Pattern Blood Pressure 163/79 H 165/74 H 163/71 H Blood Pressure [Right Arm] Blood Pressure Mean 123 104 115 Blood Pressure Mean [Right Arm] Blood Pressure Position [Right Arm] Pulse Oximetry 97 97 Oxygen Delivery Method Room Air Sepsis Recent Fever Within 48 Hours Sepsis New/Unexplained Change in Mental Status Sepsis Action Taken by Nursing 02/18/24 11:00 02/18/24 11:06 02/18/24 11:45 Temperature Temperature Source Pulse Rate 60 71 Pulse Rate [Apical] 63 Pulse Rate from SpO2 Sensor 61 70 Respiratory Rate 19 15 16 Respiratory Effort / Characteristics Non-Labored Spontaneous Respiratory Depth Normal Respiratory Pattern Blood Pressure 156/72 H 162/76 H Blood Pressure [Right Arm] 156/72 H Blood Pressure Mean 121 104 Blood Pressure Mean [Right Arm] 100 Blood Pressure Position [Right Arm] Semi-fowlers Pulse Oximetry 97 98 97 Oxygen Delivery Method Room Air Room Air Room Air Sepsis Recent Fever Within 48 Hours Sepsis New/Unexplained Change in Mental Status Sepsis Action Taken by Nursing 02/18/24 12:00 02/18/24 12:15 02/18/24 13:00 Temperature Temperature Source Pulse Rate 60 63 65 Pulse Rate [Apical] Pulse Rate from SpO2 Sensor 60 63 Respiratory Rate 17 12 17 Respiratory Effort / Characteristics Respiratory Depth Respiratory Pattern Blood Pressure 143/66 H 143/68 H 165/73 H Blood Pressure [Right Arm] Blood Pressure Mean 91 93 84 Blood Pressure Mean [Right Arm] Blood Pressure Position [Right Arm] Pulse Oximetry 95 95 96 Oxygen Delivery Method Room Air Room Air Sepsis Recent Fever Within 48 Hours Sepsis New/Unexplained Change in Mental Status Sepsis Action Taken by Nursing 02/18/24 13:12 Temperature Temperature Source Pulse Rate 59 L Pulse Rate [Apical] Pulse Rate from SpO2 Sensor Respiratory Rate Respiratory Effort / Characteristics Respiratory Depth Respiratory Pattern Blood Pressure Blood Pressure [Right Arm] Blood Pressure Mean Blood Pressure Mean [Right Arm] Blood Pressure Position [Right Arm] Pulse Oximetry Oxygen Delivery Method Sepsis Recent Fever Within 48 Hours Sepsis New/Unexplained Change in Mental Status Sepsis Action Taken by Nursing Laboratory Data 02/18/24 09:15 02/18/24 09:15 Lab Results 02/18/24 02/18/24 Range/Units 09:15 11:53 WBC 5.95 (4.8-10.8) K/ul RBC 4.30 (4.20-5.40) M/uL Hgb 13.0 (12.0-16.0) g/dl Hct 39.2 (37.0-47.0) % MCV 91.2 (80.0-100.0) fL MCH 30.2 (25.0-34.0) pg MCHC 33.2 (32.0-36.0) g/dL RDW Std Deviation 42.5 (36.4-46.3) fL RDW Coeff of Danika 12.9 (11.5-14.5) % Plt Count 192 (130-400) K/uL MPV 10.6 (9.4-12.4) fL Immature Gran % (Auto) 0.2 % Neut % (Auto) 58.4 % Lymph % (Auto) 27.9 % [place] % (Auto) 10.8 % Eos % (Auto) 2.0 % Baso % (Auto) 0.7 % Neut # (Auto) 3.48 (1.40-6.50) K/uL Lymph # (Auto) 1.66 (1.20-3.40) K/uL [place] # (Auto) 0.64 H (0.11-0.59) K/uL Eos # (Auto) 0.12 (0.00-0.50) K/uL Baso # (Auto) 0.04 (0.00-0.20) K/uL Immature Gran # (Auto) 0.01 (0.01-0.20) K/uL Sodium 139 (136-145) mmol/L Potassium 4.2 (3.5-5.1) mmol/L Chloride 105 (98-107) mmol/L Carbon Dioxide 29 (21-32) mmol/L Anion Gap 5 (3-11) BUN 22 (6-23) mg/dl Creatinine 1.09 (0.6-1.2) mg/dl Est Cr Clr Drug Dosing 28.2 ml/min eGFR 49.17 BUN/Creatinine Ratio 20.2 H (10-20) Glucose 113 H (70-99(Fasting)) mg/dl Calcium 9.6 (8.6-10.3) mg/dl Total Bilirubin 0.4 (0.2-1.0) mg/dl AST 17 (13-39) U/L ALT 17 (7-52) U/L Alkaline Phosphatase 51 (34-104) U/L Troponin I High Sens 8.3 8.4 (0-14) pg/ml Total Protein 6.4 (6.0-8.3) gm/dl Albumin 4.2 (3.4-5.0) gm/dl Globulin 2.2 L (2.5-4.0) gm/dl Albumin/Globulin Ratio 1.9 (0.9-2) Lipase 79 (11-82) U/L Administered Medications Discontinued Medications Al Hydrox/Mg Hydrox/Simethicone (Aluminum/Magnesium Susp 30 Ml Udc) 30 ml PO NOW STA Stop: 02/18/24 09:16 Last Admin: 02/18/24 09:22 Dose: 30 ml Documented By: Aspirin (Aspirin Chew 324 Mg) 324 mg PO NOW STA Stop: 02/18/24 09:26 Last Admin: 02/18/24 09:38 Dose: 324 mg Documented By: Morphine Sulfate (Morphine Sulfate 4 Mg/Ml 1 Ml Carp\Vial) 4 mg IV NOW STA Stop: 02/18/24 09:48 Last Admin: 02/18/24 09:50 Dose: 4 mg Documented By: Morphine Sulfate (Morphine Sulfate 4 Mg/Ml 1 Ml Carp\Vial) 4 mg IV NOW STA Stop: 02/18/24 10:27 Last Admin: 02/18/24 11:07 Dose: 4 mg Documented By: [facility] Nitroglycerin (Nitroglycerin Sl 0.4 Mg/Tab Tab) 0.4 mg SL NOW STA Stop: 02/18/24 09:35 Last Admin: 02/18/24 09:38 Dose: 0.4 mg Documented By: Imaging Data Radiologist's Impression: Chest X-Ray 02/18/24 09:15 XR chest 1V portable CLINICAL HISTORY: Chest pain, nonspecific COMPARISON STUDY: Chest radiograph August 05, 2020. Chest CT September 02, 2021. FINDINGS: Lung volumes are normal. Lungs are clear. Shadow projects over the right lower lung. There is no pneumothorax or pleural effusion. Cardiac size is stable. Mediastinal contours are normal. There is no evidence for pulmonary edema. IMPRESSION: No acute cardiopulmonary findings. No change in appearance of the chest. ACT 112: Negative or not required by law. Electronically signed by: Nick Noble M.D. 02/18/2024 9:46 AM Gallbladder Ultrasound 02/18/24 09:16 US gallbladder CLINICAL HISTORY: epigastric abd pain TECHNIQUE: Multiple real-time sonographic images of the right upper quadrant were obtained. Comparison: Comparison is made to CT abdomen pelvis 09/11/2021 FINDINGS: The liver is diffusely homogenous with normal contour and echogenicity. No focal mass lesions are seen. No intrahepatic ductal dilatation is seen. Linear hyperechoic foci with posterior shadowing are identified layering dependently within the gallbladder, which are consistent with gallstones. The gallbladder wall is not thickened. There is no pericholecystic fluid present. A sonographic Trevino's sign was not elicited by the senior qa tester. The common duct measures 0.4 cm in diameter at the level of the hepatic artery. The visualized portions of the pancreas appear normal. The right kidney is atrophic in appearance. Chronic appearing hydronephrosis is seen. No ascites or free fluid is seen in Jena's pouch. IMPRESSION: 1. No acute abnormalities to explain epigastric pain. 2. Cholelithiasis without cholecystitis. 3. Atrophic right kidney with hydronephrosis. ACT 112: Negative or not required by law. Electronically signed by: Jewel Black M.D. 02/18/2024 11:23 AM Discharge Plan Visit Data Chief Complaint: Chest Pain Stated Complaint: CHEST PAIN, HEART BURN, BACK PAIN ED Provider: Nicholas Helton Discharge Problem: Chest pain, Abdominal pain Patient Disposition: Admitted As Inpatient Discharge Instructions Interventions: ED Discharge Assessment Last Done: 02/18/24 13:19 Prescriptions Prescriptions: No Action aspirin [Adult Low Dose Aspirin] 81 mg tablet,delayed release (DR/EC) 81 mg PO DAILY irbesartan 300 mg tablet 300 mg PO QAM Qty: 90 3RF amlodipine 5 mg tablet 5 mg PO DAILY Qty: 90 3RF Patient Comments: TAKES QAM simvastatin 20 mg tablet 20 mg PO QAM Qty: 90 3RF erythromycin 5 mg/gram (0.5 %) ointment 1.25 cm ophthalmic (eye) TID Qty: 3.5 0RF Discharge Problem: Chest pain Qualifiers: Chest pain type: unspecified Qualified Code(s): R07.9 - Chest pain, unspecified Abdominal pain Qualifiers: Abdominal location: unspecified location Qualified Code(s): R10.9 - Unspecified abdominal pain
[2024-02-18 09:30] LABS: Basophils # (auto) 0.04 K/uL (0.00-0.20); Basophils % (auto) 0.7 %; Eosinophils # (auto) 0.12 K/uL (0.00-0.50); Hematocrit (blood only) 39.2 % (37.0-47.0); Immature Granulocytes # (auto) 0.01 K/uL (0.01-0.20); Immature Granulocytes % (auto) 0.2 %; Lymphocytes # (auto) 1.66 K/uL (1.20-3.40); Lymphocytes % (auto) 27.9 %; Mean Corpuscular Hemoglobin 30.2 pg (25.0-34.0); Mean Corpuscular Hgb Conc 33.2 g/dL (32.0-36.0); Mean Corpuscular Volume 91.2 fL (80.0-100.0); Mean Platelet Volume 10.6 fL (9.4-12.4); Monocytes # (auto) 0.64 K/uL (0.11-0.59); Monocytes % (auto) 10.8 %; Neutrophils # (auto) 3.48 K/uL (1.40-6.50); Neutrophils % (auto) 58.4 %; Platelet Count 192 K/uL (130-400); RDW Coefficient of Variation 12.9 % (11.5-14.5); RDW Standard Deviation 42.5 fL (36.4-46.3); White Blood Count 5.95 K/ul (4.8-10.8)
[2024-02-18] MEDS: ASPIRIN CHEW 324 MG PO STA (09:38)
[2024-02-18] MEDS: NITROGLYCERIN SL 0.4 MG/TAB TAB SL STA (09:38)
[2024-02-18 09:43] LABS: Albumin Globulin Ratio 1.9 (0.9-2); Albumin Level 4.2 gm/dl (3.4-5.0); BUN Creatinine Ratio 20.2 (10-20); Bilirubin,Total 0.4 mg/dl (0.2-1.0); Calcium 9.6 mg/dl (8.6-10.3); Creatinine Clr Calc Pharmacy 28.2 ml/min; Globulin 2.2 gm/dl (2.5-4.0); Potassium 4.2 mmol/L (3.5-5.1); Total Protein 6.4 gm/dl (6.0-8.3)
--- NOTE | 2024-02-18 09:47 | XRay Report ---
XR chest 1V portable CLINICAL HISTORY: Chest pain, nonspecific COMPARISON STUDY: Chest radiograph August 05, 2020. Chest CT September 02, 2021. FINDINGS: Lung volumes are normal. Lungs are clear. Shadow projects over the right lower lung. There is no pneumothorax or pleural effusion. Cardiac size is stable. Mediastinal contours are normal. Ther e is no evidence for pulmonary edema. IMPRESSION: No acute cardiopulmonary findings. No change in appearance of the chest. ACT 112: Negative or not required by law. Electronically signed by: Nick Noble M.D. 02/18/2024 9:46 AM
[2024-02-18 09:48] LABS: Troponin I High Sensitivity 8.3 pg/ml (0-14)
[2024-02-18] MEDS: MoRPHine SULFATE 4 MG/ML 1 ML CARP\\VIAL IV STA ×2 (09:50→11:07)
--- NOTE | 2024-02-18 11:25 | Ultrasound Report ---
US gallbladder CLINICAL HISTORY: epigastric abd pain TECHNIQUE: Multiple real-time sonographic images of the right upper quadrant were obtained. Comparison: Comparison is made to CT abdomen pelvis 09/11/2021 FINDINGS: The liver is diffusely homogenous with normal contour and echogenicity. No focal mass lesions are see n. No intrahepatic ductal dilatation is seen. Linear hyperechoic foci with posterior shadowing ar e identified layering dependently within the gallbladder, which are consistent with gallstones. The g allbladder wall is not thickened. There is no pericholecystic fluid present. A sonographic Trevino's sign was not elicited by the certified veterinary technician. The common duct measures 0.4 cm in diameter at the level of the hepatic artery. The visualized portions of the pancreas appear normal. The right kidney is atrophic in appearance. Chronic appearing hydronephrosis is seen. No ascites or free fluid is seen in Jean's pouch. IMPRESSION: 1. No acute abnormalities to explain epigastric pain. 2. Cholelithiasis without cholecystitis. 3. Atrophic right kidney with hydronephrosis. ACT 112: Negative or not required by law. Electronically signed by: Jewel Black M.D. 02/18/2024 11:23 AM
--- NOTE | 2024-02-18 11:36 | History & Physical Report ---
Date of Service February 18, 2024 Assessment & Plan (1) LBBB (left bundle branch block): Plan: Assessment/summary 88-year-old female who presents with 8 hours of continuous burning chest pain which resolved in the ER after receiving aspirin/nitro/morphine/GI cocktail. She does have component suggestive of GI etiology including burning pain for 8 hours with a negative troponin which improved after GI cocktail. Other than intermittent transient chest pain worsened by meals 2 days ago she has not had any preceding chest discomfort, dyspnea, or sweating. EKG does show a new left bundle branch block not present on prior EKGs, and patient does report that she has had a sudden change in her exercise tolerance and is much more fatigued while attempting to vacuum in the previous few weeks and her son notices that she has had a sudden change in this as well. With her maximal exertion she has not had any sweating, dyspnea, or chest pain but does feel very tired very easily. This with new EKG changes are concerning for ischemic change, although this may the subacute/interval in the previous months. Cardiology consulted to evaluate for possible nuclear study. Chest pain, new left bundle branch block Patient reports burning chest pain continuous for approximately 8 hours preceding ER assessment. Normal troponin. No associated dyspnea or diaphoresis Troponin 8.3, repeat pending She had intermittent symptoms worsened by meals on Saturday which have since improved. Gallbladder ultrasound is normal and there is no transaminitis EKG does show a new left bundle branch block She has a prior reported history of TX without catheterization in , no anginal symptoms since that time and did not have stents placed at any point per patient/son She denies anginal symptoms/chest pain on exertion but notes that in the last few weeks doing her normal levels of activity including vacuuming she has been much more fatigued and exercise limited than is typical for her. Son confirms this. No sweating/chest pain/dyspnea just feels tired. Chest pain in ER did resolve after receiving morphine, nitro, aspirin, and GI cocktail. (2) Prediabetes: Plan: A1c 5.6% No antiglycemic's. Can trend BSG daily. If above goal at [facility]SI and switch to DM2 diet at that time (3) Chronic kidney disease, stage 3: Plan: Baseline creatinineIs approximately 1.2. Creatinine is at baseline, 1.09 on admission. BMP daily No KASSIDY on admission (4) Myocardial Infarction: Plan: 1990, patient denies history of heart failure/stents/cath History of Present Illness Primary Care Provider: Kyle Daniel MD Mitzi is a 88-year-old female with a past medical history of CKD 3, AAA, aortic insufficiency, hyperlipidemia, hypertension, prediabetes, and past TIA with right foot drop/leg weakness transiently improved presents to the ER today with midsternal chest discomfort radiating into the back which improved slightly with Tylenol. On ER assessment she has a normal troponin, no leukocytosis, no acute abnormalities on gallbladder ultrasound, and no acute abnormalities on her chest x-ray. EKG reviewed, patient shows a new left bundle branch block compared to 07/13/2022. Prior EKGs with first-degree block on EKG in June, and sinus prior. Echo is pending. Given new left bundle branch block with chest pain cardiology was consulted, troponin repeated, echo is pending. Additionally Lyme testing is been ordered due to new first-degree block on prior EKG. Mitzi is seen with her son at the bedside. Endorses burning pain in her chest which began at midnight. Had intemittent similar pain Saturday, similar in quality but much more mild in intensity and which worsened with meals. Notes meals worsen symptoms NO change in symptoms with activity/exertion, although feels much more tired than normal In the prior few weeks maximal activity is walking and cleaning the house/running the vaccum. Gets very tired easily and woul dhave to take breaks from this but no chest pain or chest pressure. MOre tired last few weeks than would be typical for her. No pain similar to last night though. No sweating. No dyspnea. No cough. No orthopnea. No leg swelling. No syncope. Endorses presycnope with exertion in the last few weeks and working around the kitchen. Checks her BP at home and has been OK up until today, this morning was high. Endorses history of AAA on monitoring. No history of repair. Takes aspirin. No tobacco. Rare social ETOH none recently. At time of bedside assessment pain has completely resolved. Medical History: Reviewed Medications: Reviewed Surgical History: Reviewed Family history: Reviewed Allergies: Reviewed Social History: Code Status: Allergies Allergy/AdvReac Type Severity Reaction Status Date / Time No Known Drug Allergies Allergy Verified 02/10/24 09:03 Home Medications Medication Instructions Recorded Confirmed Type aspirin 81 mg tablet,delayed 81 mg PO DAILY 08/05/20 02/18/24 History release (Adult Low Dose Aspirin) amlodipine 5 mg tablet 5 mg PO DAILY #90 tabs 05/20/23 02/18/24 Rx irbesartan 300 mg tablet 300 mg PO QAM #90 tabs 05/20/23 02/18/24 Rx simvastatin 20 mg tablet 20 mg PO QAM #90 tabs 05/20/23 02/18/24 Rx erythromycin 5 mg/gram (0.5 %) eye 1.25 cm ophthalmic (eye) TID #3.5 02/10/24 02/18/24 Rx ointment grams Past Med/Surg History Problem List (Updated 02/18/24 @ 13:43 by Nicholas Helton DO) Abdominal pain (Acute) Chest pain (Acute) LBBB (left bundle branch block) Encounter for Medicare annual wellness exam Peroneal nerve injury Right leg weakness (Acute) Right leg weakness Carpal tunnel syndrome Hypertension Hyperlipidemia Lyme disease (Acute) Osteoporosis Prediabetes Tricuspid regurgitation Mild-moderate on 2019 stress echo Vitamin D deficiency Dilated renal pelvis (Acute) Aortic insufficiency Mild on 2019 stress echo 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, right Arthritis Gross hematuria Chronic bladder pain Ascending aortic aneurysm Trochanteric bursitis, left hip Degenerative joint disease of left hip Lumbar spondylosis Chronic kidney disease, stage 3 Medical History PMR (polymyalgia rheumatica) Lyme disease Carpal tunnel syndrome of right wrist Carpal tunnel syndrome of left wrist Encounter for pre-operative examination Polymyalgia rheumatica Osteoarthritis Borderline diabetes Jaw clicking Myocardial Infarction Surgical History History of right hip replacement History of anesthesia reaction History of breast biopsy History of carpal tunnel release History of hysterectomy History of colonoscopy History of appendectomy History of tooth extraction History of cataract surgery Family History Father Colorectal cancer Prostate cancer Uncle Colorectal cancer Brother Myocardial infarction Sister Myocardial infarction Mother Diabetes Hypertension Grandmother (Maternal) Family history of diabetes mellitus Other Family history non-contributory No family history of adverse response to anesthesia Denies family history of Ovarian cancer Breast cancer Social History Smoking Status: Never smoker Tobacco Type: Cigarettes Age Started Using Tobacco: 31; Age Quit Using Tobacco: 49; packs per day: 0.25; Second Hand Exposure: No; Do You Dip or Chew Tobacco: No; Tobacco Cessation Education Requested by Patient: No Hx Alcohol Use: No Hx Substance Use: No Preferred Language: Slovenian Communication Ability: Effective Visual Impairment: No Limitations Hearing Ability: Normal Scrubber Operator Required: No Beliefs That Will Affect Care: None marital status: / Current Living Situation: Alone current occupational status: retired 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 NAD. Cooperative. HEENT: Atraumatic, normocephalic. Slightly hard of hearing, but hearing and vision grossly intact Pulm: CTAB A&P. -wheezes, -rales, -rhonchi. Symmetrical chest rise. No increased work of breathing. No respiratory distress. Cardiac: RRR, +sm. Radial pulses intact and symmetrical. No JVD. No leg edema Abdominal: Nontender, nondistended, soft. BS present. Extremities: Warm and dry. No edema Results & Data Results & Data Vital Signs (Past 12 Hours) Vital Signs Temp Pulse Pulse Resp BP BP Pulse Ox 02/18/24 11:06 63 15 156/72 H 98 02/18/24 09:39 74 20 173/87 H 02/18/24 09:18 70 02/18/24 09:17 02/18/24 09:15 96 02/18/24 09:13 36.6 C 73 21 188/153 H 98 O2 Del Method 02/18/24 11:06 Room Air 02/18/24 09:39 Room Air 02/18/24 09:18 02/18/24 09:17 Room Air 02/18/24 09:15 Room Air 02/18/24 09:13 Room Air PG Care Time/CCT Total # of Minutes Spent Total Time Spent with Patient: Total time spent is greater than 50% in coordination of care (as documented) at patient's floor/unit and/or counseling patient: Coding Level of Care Code 00227 INT INP/OBS CARE 3/75MIN Diagnoses LBBB (left bundle branch block) I44.7 Prediabetes R73.03 Stage 3a chronic kidney disease N18.31 Chronic kidney disease stage 3 subtype: stage 3a (GFR 45-59) Myocardial Infarction I21.9 (3) Chronic kidney disease, stage 3 Chronic kidney disease stage 3 subtype: stage 3a (GFR 45-59) Qualified Code(s): N18.31 - Chronic kidney disease, stage 3a
[2024-02-18] MEDS ORDERED: ALUMINUM/MAGNESIUM SUSP 30 ML UDC PO PRN (13:40)
[2024-02-18] MEDS ORDERED: NITROGLYCERIN SL 0.4 MG/TAB TAB SL PRN (13:40)
[2024-02-18] MEDS ORDERED: ACETAMINOPHEN 325 MG TAB PO PRN (13:40)
[2024-02-18] MEDS: FAMOTIDINE 20MG IV PUSH 20 MG/5 ML SYR IV SCH (15:15)
[2024-02-18] MEDS: ERYTHROMYCIN OP OINT 5 MG/GM 3.5 GM TUBE OP SCH (15:16)
--- NOTE | 2024-02-18 16:21 | Electrocardiogram Report ---
Test Reason : Blood Pressure : */* mmHG Vent. Rate : 78 BPM Atrial Rate : 78 BPM P-R Int : 198 ms QRS Dur : 132 ms QT Int : 416 ms P-R-T Axes : 76 -66 63 degrees QTcB Int : 474 ms Normal sinus rhythm Possible Left atrial enlargement Left axis deviation Left bundle branch block Abnormal ECG When compared with ECG of 13-Jul-2022 05:12, GA interval has decreased Left bundle branch block is now Present Confirmed by Kyle Schulz ([id number]) on 02/18/2024 4:21:14 PM Referred By: REFERRED SELF Confirmed By: Kyle Schulz
--- NOTE | 2024-02-18 17:25 | Cardiology Consultation ---
Date of Consultation February 18, 2024 Assessment & Plan (1) Chest pain: (2) LBBB (left bundle branch block): (3) Aortic insufficiency: Plan 1. Chest pain: While there was a substernal component to her symptoms, she described this as "burning" and there was a significant abdominal component. The extended duration of her symptoms without elevation in her biomarkers suggest this was not an ischemic event. She did have some elevated blood pressures at the time of admission. Aortic pathology cannot definitively be excluded but there was no evidence of widened mediastinum on her chest x-ray. Symptoms also seem to have resolved with morphine. 2. Left bundle branch block: New. Last EKG in our system was approximately 18 months ago. First-degree AV block as well. Commonly associated with significant cardiac disease. Will see what her echocardiogram looks like to dominic. In the absence of a notable decline in LV function it is unclear that any additional evaluation would be necessary. 3. Exercise intolerance: She did not describe this as overt dyspnea. Multiple possible etiologies. No associated chest pain either. I think of her LV function is normal noncardiac etiology should be evaluated. History of Present Illness Reason for Consultation: New left bundle branch block Requesting Physician: Kathia Attending Physician: Jordan Bae MD History of Present Illness The patient is an 88-year-old woman without a known history of cardiac disease who presented to the emergency room with symptoms of chest "burning" and upper abdominal discomfort. Apparently some of her symptoms involved back discomfort as well. These occurred while she was sleeping last night. She felt that this may be indigestion and she took some antiacids. She drank some water. However, her symptoms persisted for several hours and she eventually sought an evaluation in the emergency room. The GI cocktail did not provide any relief. Nitroglycerin did not provide any relief. It seems administration of morphine finally improved her symptoms. At no time did she have breathing difficulty. She did not report associated dizziness or lightheadedness. There was no jaw or arm pain. She did not appreciate any palpitations associated with this episode. Currently she has some nausea and dry mouth. She is thirsty but not overtly hungry. She has not had recurrence of her index symptoms. In general she is an active individual who lives in assisted living community. She has to walk a long hallway several times daily. She states that over the past 3 weeks she has had more difficulty performing this task. She often has to stop [facility] in order to rest. This is primarily due to fatigue and exercise intolerance. No limiting dyspnea. No exertional chest pain. Again no history of palpitations or dizziness. Allergies Allergy/AdvReac Type Severity Reaction Status Date / Time No Known Drug Allergies Allergy Verified 02/10/24 09:03 Home Medications Medication Instructions Recorded Confirmed Type aspirin 81 mg tablet,delayed 81 mg PO DAILY 08/05/20 02/18/24 History release (Adult Low Dose Aspirin) amlodipine 5 mg tablet 5 mg PO DAILY #90 tabs 05/20/23 02/18/24 Rx irbesartan 300 mg tablet 300 mg PO QAM #90 tabs 05/20/23 02/18/24 Rx simvastatin 20 mg tablet 20 mg PO QAM #90 tabs 05/20/23 02/18/24 Rx erythromycin 5 mg/gram (0.5 %) eye 1.25 cm ophthalmic (eye) TID #3.5 02/10/24 02/18/24 Rx ointment grams Patient History Medical History PMR (polymyalgia rheumatica) Lyme disease Carpal tunnel syndrome of right wrist Carpal tunnel syndrome of left wrist Encounter for pre-operative examination Polymyalgia rheumatica Osteoarthritis Borderline diabetes Jaw clicking Myocardial Infarction Surgical History History of right hip replacement History of anesthesia reaction History of breast biopsy History of carpal tunnel release History of hysterectomy History of colonoscopy History of appendectomy History of tooth extraction History of cataract surgery Family History Father Colorectal cancer Prostate cancer Uncle Colorectal cancer Brother Myocardial infarction Sister Myocardial infarction Mother Diabetes Hypertension Grandmother (Maternal) Family history of diabetes mellitus Other Family history non-contributory No family history of adverse response to anesthesia Denies family history of Ovarian cancer Breast cancer Social History Smoking Status: Never smoker Tobacco Type: Cigarettes Age Started Using Tobacco: 31; Age Quit Using Tobacco: 49; packs per day: 0.25; Second Hand Exposure: No; Do You Dip or Chew Tobacco: No; Tobacco Cessation Education Requested by Patient: No Hx Alcohol Use: No Hx Substance Use: No Preferred Language: Cook Islander Communication Ability: Effective Visual Impairment: No Limitations Hearing Ability: Normal Non Destructive Testing Engineer Required: No Beliefs That Will Affect Care: None marital status: / Current Living Situation: Alone current occupational status: retired 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 No recent change in her diet. No sick contacts. No fevers or chills. No lower extremity edema. Physical Exam Physical Exam: She is alert and oriented x3. Mood affect appear normal. She answered all questions appropriately. HEENT: Sclerae are anicteric. Pupils are equal and reactive to light and accommodation. Extraocular movements were intact. Neuro: Cranial nerves intact Lungs: Lungs are clear to auscultation bilaterally. There are no rales wheezes or rhonchi. She has normal respiratory effort without use of accessory muscles. There is normal pulmonary excursion. Cardiac: The rhythm was regular. S1 and S2 were normal. Crescendo systolic murmur. The PMI was not markedly displaced on palpation. Abdomen: The abdomen was soft and nontender. Extremities: Patient has bilateral radial pulses that are equal in intensity. There is no evidence cyanosis or clubbing. There was no evidence of significant peripheral edema bilaterally. Skin: There are no rashes noted on examination today. Results & Data Vital Signs (Past 12 Hours) Vital Signs Temp Pulse Pulse Resp BP BP BP 02/18/24 15:44 36.6 C 73 16 159/61 H 02/18/24 14:25 61 02/18/24 13:40 02/18/24 13:40 36.6 C 60 17 163/65 H 02/18/24 13:12 59 L 02/18/24 13:00 65 17 165/73 H 02/18/24 12:15 63 12 143/68 H 02/18/24 12:00 60 17 143/66 H 02/18/24 11:45 71 16 162/76 H 02/18/24 11:06 63 15 156/72 H 02/18/24 11:00 60 19 156/72 H 02/18/24 10:45 64 24 163/71 H 02/18/24 10:33 63 17 165/74 H 02/18/24 10:15 63 16 163/79 H 02/18/24 09:45 76 24 135/76 02/18/24 09:39 74 20 173/87 H 02/18/24 09:18 70 02/18/24 09:17 02/18/24 09:15 02/18/24 09:13 36.6 C 73 21 188/153 H Pulse Ox O2 Del Method 02/18/24 15:44 96 Room Air 02/18/24 14:25 02/18/24 13:40 Room Air 02/18/24 13:40 96 Room Air 02/18/24 13:12 02/18/24 13:00 96 Room Air 02/18/24 12:15 95 02/18/24 12:00 95 Room Air 02/18/24 11:45 97 Room Air 02/18/24 11:06 98 Room Air 02/18/24 11:00 97 Room Air 02/18/24 10:45 97 Room Air 02/18/24 10:33 97 02/18/24 10:15 02/18/24 09:45 95 02/18/24 09:39 Room Air 02/18/24 09:18 02/18/24 09:17 Room Air 02/18/24 09:15 96 Room Air 02/18/24 09:13 98 Room Air Laboratory Results Abnormal Lab Results 02/18/24 02/18/24 09:15 11:53 WBC 5.95 RBC 4.30 Hgb 13.0 Hct 39.2 MCV 91.2 MCH 30.2 MCHC 33.2 RDW Std Deviation 42.5 RDW Coeff of Danika 12.9 Plt Count 192 MPV 10.6 Immature Gran % (Auto) 0.2 Neut % (Auto) 58.4 Lymph % (Auto) 27.9 [place]go % (Auto) 10.8 Eos % (Auto) 2.0 Baso % (Auto) 0.7 Neut # (Auto) 3.48 Lymph # (Auto) 1.66 [place] # (Auto) 0.64 H Eos # (Auto) 0.12 Baso # (Auto) 0.04 Immature Gran # (Auto) 0.01 Sodium 139 Potassium 4.2 Chloride 105 Carbon Dioxide 29 Anion Gap 5 BUN 22 Creatinine 1.09 Est Cr Clr Drug Dosing 28.2 eGFR 49.17 BUN/Creatinine Ratio 20.2 H Glucose 113 H Calcium 9.6 Total Bilirubin 0.4 AST 17 ALT 17 Alkaline Phosphatase 51 Troponin I High Sens 8.3 8.4 Total Protein 6.4 Albumin 4.2 Globulin 2.2 L Albumin/Globulin Ratio 1.9 Lipase 79 Diagnostic Findings Echocardiogram 05/14/2022: Normal LV systolic function with ejection fraction of 60 to 65%. Mild LVH. Mild aortic regurgitation. Mild to moderate tricuspid regurgitation. Normal right ventricular pressures. Dobutamine stress echocardiogram 04/23/2019: No evidence for inducible ischemia. Normal LV systolic function. No regional wall motion abnormalities. Mild LVH. Mild aortic regurgitation. Mild to moderate tricuspid regurgitation. Abdominal ultrasound did not reveal any acute cholecystitis. Atrial fibrillation new with hydronephrosis. Chest x-ray obtained at the time admission not really acute cardiopulmonary findings. PG Care Time/CCT Total # of Minutes Spent Total Time Spent with Patient: Total time spent is greater than 50% in coordination of care (as documented) at patient's floor/unit and/or counseling patient: Coding Level of Care Code 85529 INT INP/OBS CARE MIN Diagnoses Chest pain R07.9 Chest pain type: unspecified LBBB (left bundle branch block) I44.7 Nonrheumatic aortic valve insufficiency I35.1 Cardiac valve disease etiology: nonrheumatic (1) Chest pain Chest pain type: unspecified Qualified Code(s): R07.9 - Chest pain, unspecified (3) Aortic insufficiency Cardiac valve disease etiology: nonrheumatic Qualified Code(s): I35.1 - Nonrheumatic aortic (valve) insufficiency
[2024-02-18] MEDS: ONDANSETRON INJ 2 MG/ML 2 ML VIAL IV PRN (19:57)
[2024-02-18] MEDS: HEPARIN SOD 5,000 UNIT/0.5 ML VIAL SQ SCH (20:03)
[2024-02-19 07:25] VITALS: RESP 18; O2SAT 98
[2024-02-19] MEDS: ASPIRIN 81 MG ECTAB PO SCH (07:25)
[2024-02-19] MEDS: SIMVASTATIN 20 MG TAB PO SCH (07:25)
[2024-02-19] MEDS: amLODIPine BESYLATE 5 MG TAB PO SCH (07:25)
[2024-02-19] MEDS: LOSARTAN POTASSIUM 50 MG TAB PO SCH (08:38)
[2024-02-19] MEDS ORDERED: IRBESARTAN 150 MG TAB PO SCH (09:00)
[2024-02-19 11:39] VITALS: TEMP 98.2
--- NOTE | 2024-02-19 12:09 | XCELERA ---
[id number]
[2024-02-19 15:01] VITALS: BP 159/78; PULSE 82
--- NOTE | 2024-02-19 16:07 | Discharge Summary ---
Discharge Summary Date of Service February 19, 2024 Principal Dx & Hospital Course #1 = Principal Diagnosis (1) LBBB (left bundle branch block): Very pleasant 88-year-old female who came in with chest pain that seems to have likely been GI. At the same time, she had new and worsening fatigue as well as a new left bundle branch blockobviously PR was the diagnosis of exclusion. Normal troponins and reassuring echo, as well as a reassuring cardiology consult effectively ruled out ischemic heart disease as the cause. Her vitals were stable and she wanted to go homeseemed safe to do so. At the same time, she has had progressive fatigue and lowering exercise tolerance over the last year (when asked to quantify at best, she notes about a year ago she could walk for 25 minutes, and now is limited by fatigue or possibly shortness of breath (she seems to have a hard time discerning which is the limiting symptom) after 5-10 minutes. Obviously a broad spectrum of etiologiesas above noted, ischemic heart disease seems effectively ruled out; while we did not see bradycardia arrhythmias or heart blocks while here, she is 88 with a left bundle and first- degree AV blockand bradycardia arrhythmias are possiblewill ask that she get set up with an event monitor as an outpatient; while she does not have an extensive smoking history herself, she has some degree of symptoms that could be consistent with chronic lung diseasewould get PFTs as an outpatient; she did show some LVH and mildly progressed valvular heart diseasewhich could be the etiology (but in the absence of pulmonary edema on x-ray or exam this seems less likely). Would also have her continue to follow-up with her PCP. (2) Prediabetes: A1c 5.6% (3) Chronic kidney disease, stage 3: Baseline creatinineIs approximately 1.2. Creatinine is at baseline, 1.09 on admission. (4) Myocardial Infarction: 1988, patient denies history of heart failure/stents/cath Notes For Next Care Provider Medication Changes From Visit None Admission HPI Per Admitting Provider Mitzi is a 88-year-old female with a past medical history of CKD 3, AAA, aortic insufficiency, hyperlipidemia, hypertension, prediabetes, and past TIA with right foot drop/leg weakness transiently improved presents to the ER today with midsternal chest discomfort radiating into the back which improved slightly with Tylenol. On ER assessment she has a normal troponin, no leukocytosis, no acute abnormalities on gallbladder ultrasound, and no acute abnormalities on her chest x-ray. EKG reviewed, patient shows a new left bundle branch block compared to 07/13/2022. Prior EKGs with first-degree block on EKG in June, and sinus prior. Echo is pending. Given new left bundle branch block with chest pain cardiology was consulted, troponin repeated, echo is pending. Additionally Lyme testing is been ordered due to new first-degree block on prior EKG. Mitzi is seen with her son at the bedside. Endorses burning pain in her chest which began at midnight. Had intemittent similar pain Saturday, similar in quality but much more mild in intensity and which worsened with meals. Notes meals worsen symptoms NO change in symptoms with activity/exertion, although feels much more tired than normal In the prior few weeks maximal activity is walking and cleaning the house/running the vaccum. Gets very tired easily and woul dhave to take breaks from this but no chest pain or chest pressure. MOre tired last few weeks than would be typical for her. No pain similar to last night though. No sweating. No dyspnea. No cough. No orthopnea. No leg swelling. No syncope. Endorses presycnope with exertion in the last few weeks and working around the kitchen. Checks her BP at home and has been OK up until today, this morning was high. Endorses history of AAA on monitoring. No history of repair. Takes aspirin. No tobacco. Rare social ETOH none recently. At time of bedside assessment pain has completely resolved. Medical History: Reviewed Medications: Reviewed Surgical History: Reviewed Family history: Reviewed Allergies: Reviewed Social History: Code Status: Discharge Exam gen [id number] Pleasant no distress. HEENT normocephalic atraumatic mucous membranes moist. Lungs are clear to auscultation bilaterallymaybe mildly diminished but no rales rhonchi or wheezes no accessory muscle use no dyspnea no conversational dyspnea good effort. Neuro without focal deficits. Updated Medication List Medication Instructions Recorded Confirmed Type aspirin 81 mg tablet,delayed 81 mg PO DAILY 08/05/20 02/18/24 History release (Adult Low Dose Aspirin) amlodipine 5 mg tablet 5 mg PO DAILY #90 tabs 05/20/23 02/18/24 Rx irbesartan 300 mg tablet 300 mg PO QAM #90 tabs 05/20/23 02/18/24 Rx simvastatin 20 mg tablet 20 mg PO QAM #90 tabs 05/20/23 02/18/24 Rx erythromycin 5 mg/gram (0.5 %) eye 1.25 cm ophthalmic (eye) TID #3.5 02/10/24 02/18/24 Rx ointment grams Hospital Stay Data Consultations 02/18/24 11:14 ED Decision to Admit Stat 02/18/24 13:40 Consult Cardiology Routine Diagnostic Imagining Performed 02/18/24 09:16 US gallbladder Stat Pending Results Patient Have Any Pending Studies at Discharge: No Discharge Instructions Given to Patient (Per Discharging Provider) Fatigue - fortunately, your fatigue and EKG changes (new left bundle branch block) do not appear to be due to to coronary artery disease/heart attacks. This would have been the most ominous/dangerous cause for your symptoms. Your lab work showed completely normal troponin levels (troponin is a lab test that is exceedingly sensitivewe get a lot of false positives, but essentially 0 false negatives)which rules out any acute damage to your heart. Your echocardiogram (ultrasound of your heart) did show some findings that likely are not the cause of your fatigue (but could besee below)but do not at all look consistent with what we would see with a heart that has suffered any heart attacks given that your fatigue and symptoms clearly are not related to a heart attack, it is quite safe to let you go home. Obviously we will want to get to the bottom of your symptoms furtherand I would suggest the following as a "roadmap" moving forward: - Cardiac rhythm monitoringwhile you did not show us any slow heart rhythms or conduction blocks that would lead to fatigue, those are fairly common as we get older (and you do have a little bit of conduction disease that is asymptomaticbut could be a hint)the best way to evaluate this further is to watch your heart rhythms "in the wild"i.e. have you wear a forest fire specialist supervisor at home. This ends up being set up as an outpatient test (I wish we could just send you home with 1 from the hospital, but that is not possible)and so the cardiology office will be calling you to set it up. I doubt this is what is causing your fatigue, but it is common enough, and if you had slow heart rhythms a pacemaker is generally a very successful intervention, so this is well worth looking into - lung disease evaluationas we discussed, your prior exposures for smoke/etc. and your allergy profile makes it possible that your shortness of breath could be related to COPD. Generally the best way to evaluate for that is with what are called "pulmonary function tests" (they measure lung volumes as you inhale and exhale deeply). We will ask to get this set uponce again, this is something that is almost impossible to get done when someone is admitted to the hospitalso we will set things in motion, but unfortunately are not able to do them today - structural heart problemsas we discussed, your echocardiogram does show some leaky valvesparticularly your mitral valve and tricuspid valvethese were present before, but have progressed a little. Your heart wall is also somewhat thick. While these are all findings that can make someone more short of breath or easily fatigued, typically when these findings cause shortness of breath/fatigue it comes in the context of a "traffic jam" of blood/fluid backing up into your lungs (more of a true congestive heart failure picture which you do not show). So while we are seeing these findings, I would look at them as the cause of your fatigue last, given that with you not showing a congestive heart failure picture (your x-ray and lung exam were clear of any fluid) it is safe to get you home, we will also ask that you get scheduled with your PCP for follow-up next week Total Time Total Time Spent Total Time Spent (In Minutes): <30
--- NOTE | 2024-02-19 16:07 | Billing Data ---
Date of Service February 19, 2024 Coding Level of Care Code 30013 IN/OBS DISCH 30 MIN/LESS
== END 2024-02-19 15:30 | disposition home or self-care (01) | DRG 313 ==
LOC: ED 09:03 → SUATTDRO 12:53 → 2W 12:53